=== PATIENT | male | born 1960 | race American Indian/Alaskan Native ===

== ENCOUNTER 2016-11-02 05:31 | Inpatient (IN) | payer MEDICARE ==
[2016-11-02] MEDS ORDERED: MORPHINE ONE (05:54)
[2016-11-02] MEDS ORDERED: MORPHINE IV ONE (05:54)
[2016-11-02] MEDS ORDERED: NITRO-BID 2% TP ONE ×2 (05:54)
[2016-11-02 06:21] LABS: Basophils % (Auto) 0.7 % (0.0-1.8); Eosinophils % (Auto) 3.2 % (0.0-4.3); Hematocrit 32.7 % (35.5-45.6); Hemoglobin 10.7 gm/dl (11.8-15.2); Mean Corpuscular HGB Conc 33 % (32-34); Mean Corpuscular Hemoglobin 33 pg (28-32); Mean Corpuscular Volume 99 fl (84-94); Platelet Count 129 K/mm3 (140-440); Red Cell Distribution Width 15.3 % (13.2-15.2)
[2016-11-02 06:56] LABS: BUN/Creatinine Ratio 5.27; Calcium 9.6 mg/dL (8.4-10.2); Chloride 98.7 mmol/L (98-107); Potassium 4.8 mmol/L (3.6-5.0)
[2016-11-02] MEDS ORDERED: APRESOLINE IV ONE (08:54)
[2016-11-02] MEDS ORDERED: DILAUDID IV ONE (08:54)
[2016-11-02] MEDS ORDERED: PROTONIX IV ONE (08:54)
[2016-11-02] MEDS ORDERED: PEPCID IV ONE (08:54)
--- NOTE | 2016-11-02 08:56 | Emergency Department Report ---
ED General Adult HPI - General Chief complaint: Chest Pain Stated complaint: CHEST PAIN Time Seen by Provider: 11/02/16 08:47 Source: patient, EMS (ems notes not available at time of chart dictation), RN notes reviewed, old records reviewed Mode of arrival: Stretcher Limitations: No Limitations - History of Present Illness Initial comments: This is a 56-year-old male. He is previously unknown to me. His art psychotherapist is Dr. Santiago. His GI doctor Is Dr. Haro. His Director Video Is Dr. Samaniego at [facility]. Past medical history includes acute CO, bypass surgery, heart failure, hypertension, high cholesterol, renal failure, on dialysis Wednesday, Wednesday, Wednesday. Last dialyzed one week ago. Patient presents to the ER with abdominal pain, chest pain. Symptoms present since 11 PM. Chest pain is epigastric and radiates down the left upper extremity. Positive nausea. There is no leg pain. There is no leg swelling. No recent trips greater than 4 hours. No recent hospital admissions. Today, patient denies CO last month, denies stent placement last month. He reports that his pain is typically improves with Percocet -: Gradual Location: chest, abdomen Radiation: extremity Severity scale (0 -10): 4 Quality: aching Consistency: intermittent Improves with: movement, rest Worsens with: movement Associated Symptoms: chest pain, loss of appetite, shortness of breath, weakness - Related Data Home Medications Medication Instructions Recorded Confirmed Last Taken Carvedilol [Coreg] 25 mg PO BID 11/02/16 11/02/16 10/29/16 Previous Rx's Medication Instructions Recorded Last Taken Type Metoprolol [Lopressor TAB] 25 mg PO BID #60 tablet 08/19/16 10/29/16 Rx hydrALAZINE [Apresoline TAB] 25 mg PO Q8HR #90 tablet 08/19/16 10/29/16 Rx Allergies Allergy/AdvReac Type Severity Reaction Status Date / Time No Known Allergies Allergy Verified 03/23/14 08:19 ED Review of Systems ROS: Stated complaint: CHEST PAIN Other details as noted in HPI Constitutional: denies: fever Eyes: denies: vision change ENT: denies: epistaxis Respiratory: cough Cardiovascular: chest pain Gastrointestinal: abdominal pain Genitourinary: as per HPI Musculoskeletal: back pain Skin: denies: lesions Neurological: weakness Psychiatric: as per HPI ED Past Medical Hx - Past Medical History Hx Hypertension: Yes (1990) Hx Heart Attack/AMI: Yes Hx Congestive Heart Failure: Yes Hx Diabetes: No Hx Renal Disease: Yes (HD M,W,F) Hx Asthma: No Hx COPD: No Additional medical history: CO last Month with stent placenment - Surgical History Hx Coronary Stent: Yes (x1 2012) Additional Surgical History: Stent placement, LUE AV graft - Social History Smoking Status: Current Every Day Smoker - Medications Home Medications: Home Medications Medication Instructions Recorded Confirmed Last Taken Type Metoprolol [Lopressor TAB] 25 mg PO BID #60 tablet 08/19/16 11/02/16 10/29/16 Rx hydrALAZINE [Apresoline TAB] 25 mg PO Q8HR #90 tablet 08/19/16 11/02/16 Rx Carvedilol [Coreg] 25 mg PO BID 11/02/16 11/02/16 10/29/16 History ED Physical Exam - General Limitations: No Limitations General appearance: alert, in no apparent distress - Head Head exam: Present: atraumatic, normocephalic - Eye Eye exam: Present: normal appearance, EOMI. Absent: nystagmus - ENT ENT exam: Present: normal exam, normal orophraynx, mucous membranes moist, normal external ear exam - Neck Neck exam: Present: normal inspection, full ROM. Absent: tenderness, meningismus - Respiratory Respiratory exam: Present: rhonchi. Absent: respiratory distress - Cardiovascular Cardiovascular Exam: Present: regular rate, normal rhythm, normal heart sounds. Absent: bradycardia, tachycardia, irregular rhythm, systolic murmur, diastolic murmur, rubs, gallop - GI/Abdominal GI/Abdominal exam: Present: soft, tenderness, normal bowel sounds, other ( epigastric tenderness). Absent: distended, guarding, rebound, rigid, pulsatile mass - Rectal Rectal exam: Present: deferred - Extremities Exam Extremities exam: Present: normal inspection, full ROM, normal capillary refill , other (left upper extremity AV fistula, appropriate thrill). Absent: tenderness, pedal edema, joint swelling, calf tenderness - Back Exam Back exam: Present: normal inspection, full ROM. Absent: tenderness, CVA tenderness (R) - Neurological Exam Neurological exam: Present: alert, oriented X3, other (Extraocular movements intact. Tongue midline. No facial droop. Facial sensation intact to light touch in the V1, V2, V3 distribution bilaterally. 5 and 5 strength in 4 extremities.. Sensation is intact to light touch in 4 extremities.). Absent: motor sensory deficit - Psychiatric Psychiatric exam: Present: normal affect, normal mood - Skin Skin exam: Present: warm, dry, intact, normal color. Absent: rash ED Course Vital Signs 11/02/16 11/02/16 11/02/16 05:32 05:45 06:00 Temperature 97.6 F Pulse Rate 81 81 80 Respiratory 21 33 H 25 H Rate Blood Pressure 208/124 Blood Pressure 207/117 [Right] O2 Sat by Pulse 96 92 Oximetry 11/02/16 11/02/16 11/02/16 06:01 06:04 06:15 Temperature Pulse Rate 83 80 83 Respiratory 37 H 19 Rate Blood Pressure 218/134 225/131 Blood Pressure [Right] O2 Sat by Pulse 95 92 Oximetry 11/02/16 11/02/16 11/02/16 06:30 06:45 07:00 Temperature Pulse Rate 86 84 85 Respiratory 30 H 20 14 Rate Blood Pressure 223/133 227/136 228/135 Blood Pressure [Right] O2 Sat by Pulse 92 89 90 Oximetry 11/02/16 11/02/16 11/02/16 07:15 07:30 07:45 Temperature Pulse Rate 84 85 85 Respiratory 15 15 17 Rate Blood Pressure 216/134 220/149 228/136 Blood Pressure [Right] O2 Sat by Pulse 93 97 98 Oximetry 11/02/16 11/02/16 11/02/16 08:00 08:15 08:30 Temperature Pulse Rate 82 80 80 Respiratory 22 17 22 Rate Blood Pressure 223/133 216/134 217/124 Blood Pressure [Right] O2 Sat by Pulse 93 94 93 Oximetry 11/02/16 11/02/16 11/02/16 08:45 09:01 09:15 Temperature Pulse Rate 84 80 87 Respiratory 21 34 H 14 Rate Blood Pressure 217/124 194/110 202/127 Blood Pressure [Right] O2 Sat by Pulse 99 97 97 Oximetry 11/02/16 11/02/16 11/02/16 09:16 09:31 11:07 Temperature Pulse Rate 85 89 Respiratory 13 Rate Blood Pressure 202/127 202/127 203/134 Blood Pressure [Right] O2 Sat by Pulse 98 96 Oximetry 11/02/16 11/02/16 11/02/16 11:15 11:16 11:45 Temperature Pulse Rate 89 Respiratory 20 Rate Blood Pressure 203/134 206/140 Blood Pressure 203/134 [Right] O2 Sat by Pulse 95 99 97 Oximetry 11/02/16 11/02/16 11/02/16 12:01 12:15 12:31 Temperature Pulse Rate Respiratory Rate Blood Pressure 206/140 206/140 186/108 Blood Pressure [Right] O2 Sat by Pulse 97 74 L 97 Oximetry 11/02/16 11/02/16 11/02/16 12:45 13:01 13:15 Temperature Pulse Rate 87 82 Respiratory 13 17 Rate Blood Pressure 186/108 231/133 166/106 Blood Pressure [Right] O2 Sat by Pulse 97 99 Oximetry 11/02/16 11/02/16 11/02/16 13:30 13:45 14:00 Temperature Pulse Rate 85 93 H 91 H Respiratory 12 15 12 Rate Blood Pressure 193/109 198/131 194/128 Blood Pressure [Right] O2 Sat by Pulse 98 97 97 Oximetry 11/02/16 11/02/16 11/02/16 14:15 14:20 14:30 Temperature Pulse Rate 99 H 91 H 96 H Respiratory 13 14 Rate Blood Pressure 194/128 194/128 177/103 Blood Pressure [Right] O2 Sat by Pulse 99 Oximetry 11/02/16 11/02/16 11/02/16 14:45 15:00 15:11 Temperature Pulse Rate 92 H 99 H 98 H Respiratory 14 16 13 Rate Blood Pressure 178/104 180/93 180/93 Blood Pressure [Right] O2 Sat by Pulse 95 100 97 Oximetry 11/02/16 11/02/16 11/02/16 15:23 15:30 15:41 Temperature Pulse Rate 91 H 91 H Respiratory 14 12 Rate Blood Pressure 180/93 176/102 176/102 Blood Pressure [Right] O2 Sat by Pulse 98 97 96 Oximetry 11/02/16 11/02/16 11/02/16 15:51 16:00 16:11 Temperature Pulse Rate 99 H 88 87 Respiratory 14 11 L 11 L Rate Blood Pressure 166/97 168/96 168/96 Blood Pressure [Right] O2 Sat by Pulse 97 95 98 Oximetry 11/02/16 16:31 Temperature 98.0 F Pulse Rate Respiratory Rate Blood Pressure Blood Pressure [Right] O2 Sat by Pulse Oximetry - Reevaluation(s) Reevaluation #1: 11/02/16 10:34 Differential diagnosis: GERD, pneumonia, congestive heart failure/fluid overload , acute coronary syndrome, hypertensive urgency/emergency, end stage renal disease on dialysis, uremia, noncompliance with dialysis therapy Assessment and plan: 56-year-old male with market hypertension, uremia, noncompliance with dialysis therapy, chest pain, chronic troponin leak. Required hydralazine, and multiple pain medications. Noncontrast CT scan of the abdomen and pelvis negative for acute disease. Patient currently tolerating liquid feeds. Elevated troponin leak is appreciated, this is most likely chronic, and essentially unchanged. Case is discussed with Hospital physician, Dr. Pearce, who is going to admit the patient. Case is discussed with nephrology, Dr. Richter, who is going to arrange urgent/ emergent dialysis. Case is discussed with cardiology, Dr. Sanchez and Deedee Mukherjee, who will make specific recommendations. ED Medical Decision Making - Lab Data Result diagrams: 11/03/16 06:07 11/03/16 06:07 Vital Signs 11/02/16 11/02/16 11/02/16 05:32 05:45 06:00 Temperature 97.6 F Pulse Rate 81 81 80 Respiratory 21 33 H 25 H Rate Blood Pressure 208/124 Blood Pressure 207/117 [Right] O2 Sat by Pulse 96 92 Oximetry 11/02/16 11/02/16 11/02/16 06:01 06:04 06:15 Temperature Pulse Rate 83 80 83 Respiratory 37 H 19 Rate Blood Pressure 218/134 225/131 Blood Pressure [Right] O2 Sat by Pulse 95 92 Oximetry 11/02/16 11/02/16 06:30 09:16 Temperature Pulse Rate 86 85 Respiratory 30 H Rate Blood Pressure 223/133 202/127 Blood Pressure [Right] O2 Sat by Pulse 92 Oximetry Lab Results 11/02/16 11/02/16 11/02/16 Range/Units 06:08 06:08 09:28 WBC 5.0 (4.5-11.0) K/mm3 RBC 3.30 L (3.65-5.03) M/mm3 Hgb 10.7 L (11.8-15.2) gm/dl Hct 32.7 L (35.5-45.6) % MCV 99 H (84-94) fl MCH 33 H (28-32) pg MCHC 33 (32-34) % RDW 15.3 H (13.2-15.2) % Plt Count 129 L (140-440) K/mm3 Lymph % (Auto) 17.6 (13.4-35.0) % [place] % (Auto) 11.2 H (0.0-7.3) % Eos % (Auto) 3.2 (0.0-4.3) % Baso % (Auto) 0.7 (0.0-1.8) % Lymph # 0.9 L (1.2-5.4) K/mm3 [place] # 0.6 (0.0-0.8) K/mm3 Eos # 0.2 (0.0-0.4) K/mm3 Baso # 0.0 (0.0-0.1) K/mm3 Seg Neutrophils % 67.3 (40.0-70.0) % Seg Neutrophils # 3.4 (1.8-7.7) K/mm3 PT (12.2-14.9) Sec. INR (0.87-1.13) Sodium 142 (137-145) mmol/L Potassium 4.8 (3.6-5.0) mmol/L Chloride 98.7 (98-107) mmol/L Carbon Dioxide 19 L (22-30) mmol/L Anion Gap 29 mmol/L BUN 77 H (9-20) mg/dL Creatinine 14.6 H (0.8-1.5) mg/dL Estimated GFR 4 ml/min BUN/Creatinine Ratio 5.27 % Glucose 76 (75-100) mg/dL Calcium 9.6 (8.4-10.2) mg/dL Total Bilirubin (0.1-1.2) mg/dL Direct Bilirubin (0-0.2) mg/dL AST (5-40) units/L ALT (7-56) units/L Alkaline Phosphatase (35-129) units/L Troponin T 0.102 H* 0.102 H* (0.00-0.029) ng/mL Total Protein (6.3-8.2) g/dL Triglycerides 101 (2-149) mg/dL Cholesterol 134 (50-199) mg/dL LDL Cholesterol Direct 67 (50-130) mg/dL HDL Cholesterol 47 (40-59) mg/dL Cholesterol/HDL Ratio 2.85 % Lipase (13-60) units/L 11/02/16 11/02/16 Range/Units 09:28 09:28 WBC (4.5-11.0) K/mm3 RBC (3.65-5.03) M/mm3 Hgb (11.8-15.2) gm/dl Hct (35.5-45.6) % MCV (84-94) fl MCH (28-32) pg MCHC (32-34) % RDW (13.2-15.2) % Plt Count (140-440) K/mm3 Lymph % (Auto) (13.4-35.0) % [place] % (Auto) (0.0-7.3) % Eos % (Auto) (0.0-4.3) % Baso % (Auto) (0.0-1.8) % Lymph # (1.2-5.4) K/mm3 [place] # (0.0-0.8) K/mm3 Eos # (0.0-0.4) K/mm3 Baso # (0.0-0.1) K/mm3 Seg Neutrophils % (40.0-70.0) % Seg Neutrophils # (1.8-7.7) K/mm3 PT 14.8 (12.2-14.9) Sec. INR 1.17 H (0.87-1.13) Sodium (137-145) mmol/L Potassium (3.6-5.0) mmol/L Chloride (98-107) mmol/L Carbon Dioxide (22-30) mmol/L Anion Gap mmol/L BUN (9-20) mg/dL Creatinine (0.8-1.5) mg/dL Estimated GFR ml/min BUN/Creatinine Ratio % Glucose (75-100) mg/dL Calcium (8.4-10.2) mg/dL Total Bilirubin 0.5 (0.1-1.2) mg/dL Direct Bilirubin < 0.2 (0-0.2) mg/dL AST 15 (5-40) units/L ALT 20 (7-56) units/L Alkaline Phosphatase 76 (35-129) units/L Troponin T (0.00-0.029) ng/mL Total Protein 7.0 (6.3-8.2) g/dL Triglycerides (2-149) mg/dL Cholesterol (50-199) mg/dL LDL Cholesterol Direct (50-130) mg/dL HDL Cholesterol (40-59) mg/dL Cholesterol/HDL Ratio % Lipase 74 H (13-60) units/L - EKG Data -: EKG Interpreted by Me EKG shows normal: sinus rhythm Rate: normal - EKG Data When compared to previous EKG there are: no significant change Interpretation: unchanged when compared t 11/02/16 10:37 normal sinus, 80 bpm, normal axis, left ventricular hypertrophy, T-wave inversions 1, aVL, V5 and V6. This is essentially unchanged from prior EKG. Comparison is made to EKG from 08/17/2016. - Radiology Data Radiology results: report reviewed, image reviewed X-ray of the chest demonstrates congestive heart failure, cardiomegaly, fluid overload Noncontrast CT scan of the abdomen and pelvis with no acute surgical disease. There is mild congestive heart failure Critical care attestation.: If time is entered above; I have spent that time in minutes in the direct care of this critically ill patient, excluding procedure time. ED Disposition Clinical Impression: Uremia, Hypertensive emergency, Elevated troponin I level, Chest pain Disposition: OP ADMITTED IP TO THIS HOSP Is pt being admited?: Yes Does the pt Need Aspirin: Yes Condition: Stable
--- NOTE | 2016-11-02 09:24 | Admit Criteria Form ---
Admission Criteria Documentation: CARDIOLOGY GRG Clinical Indications for Admission to Inpatient Care ( Place 'X' for any and all applicable criteria): Hospital admission is needed for appropriate care of the patient because of ANY ONE of the following (1): [ ] I. Hemodynamic instability as indicated by ALL of the following (1)(2)(3) (4)(5) [ ]a) Vital signs or other findings not as expected for chronic patient condition or baseline [ ]b) Instability indicated by ANY ONE of the following: [ ]i) Hypotension [ ]ii) Symptomatic Tachycardia unresponsive to treatment ( e.g., analgesia, fluids, sedation as indicated) [ ]iii) Inadequate perfusion indicated by ANY ONE of the following: [ ] 1) Lactic acidosis (> 2 mmol/L) [ ] 2) New abnormal capillary refill (> 3 seconds) [ ] 3) Reduced urine output [ ] 4) New altered mental status [ ]iv) Orthostatic vital sign changes unresponsive to treatment (e.g., fluids) [ ]v) IV inotropic or vasopressor medication required to maintain adequate blood pressure or perfusion [ ] II. Severe heart failure as indicated by ANY ONE of the following(17)(18) [ ]a) Respiratory distress [ ]b) Hypotension [ ]c) Anasarca (refractory to outpatient therapy) [ ]d) Cardiac arrhythmias of immediate concern [ ]e) Myocardial ischemia [ ] III. Cardiac arrhythmias or findings of immediate concern indicated by ANY ONE of the following (19)(20): [ ] a) Heart rhythms that are inherently dangerous or unstable indicated by ANY ONE of the following (21)(22)(23): [ ] i) Resuscitated ventricular fibrillation or cardiac arrest [ ] ii) Ventricular escape rhythm [ ] iii) Sustained ventricular tachycardia (30 seconds or more of ventricular rhythm at greater than 100 beats per minute) [ ] iv) Nonsustained ventricular tachycardia and ANY ONE of the following: [ ] 1) Suspected cardiac ischemia as cause or consequence of ventricular tachycardia [ ] 2) In setting of acute myocarditis [ ] b) Unstable cardiac conduction defects indicated by ANY ONE of the following(23)(24)(25) [ ] i) Type II second-degree atrioventricular block [ ]ii) Third-degree atrioventricular block [ ]iii) New-onset left bundle branch block with suspected myocardial ischemia [ ]c) Any heart rhythm and ANY ONE of the following (21)(22)(26)(27) (28) [ ] i) Continuous long-term ECG monitoring needed (e.g., initiation of drug requiring monitoring for more than 24 hours) [ ] ii) Patient has automatic implanted cardioverter defibrillator that is repeatedly firing, malfunctioning, or in need of immediate adjustment of settings beyond the scope of ambulatory or observation care [ ]d) Heart rhythms of concern due to ANY ONE of the following: [ ] i) Hypotension [ ] ii) Respiratory distress [ ] iii) Association with other significant symptoms (e.g., bradycardia with syncope or ongoing dizziness, supraventricular tachycardia with chest pain (14)(15)(17) [ ] IV. Monitoring for cardiac contusion beyond the scope of observation care needed [A](30)(31)(32) [ ] V. Surgical or device complication (e.g., valve replacement complication , pacemaker dysfunction) (35)(41)(44)(45)(46) [ ] . Inpatient palliative care needed. [B](49) Also use Inpatient Palliative Care Criteria [ ] VII. Nonbacterial thrombotic (marantic) endocarditis (36)(43)(47)(48) [X ] VIII. Cardiology condition, symptom, or finding for which emergency and observation care has failed or are not considered appropriate. [ ] IX. Acute valvular disease requiring inpatient as indicated by ANY ONE of the following (41) [ ]a) Acute valvular regurgitation (42) [ ]b) Noninfectious valvulitis (43) [ ]c) Obstructive valve thrombosis [ ]d) Paravalvular leak [ ]e) Other significant valvular disorder remaining after emergency or observation level of care (as appropriate) [ ]X. Pericardial disease requiring inpatient treatment as indicated by ANY ONE of the following (33)(34)(35)(36)(37) [ ]a) Suspected tamponade (38)(39)(40) [ ]b) Hemopericardium [ ]c) Other significant pericardial disorder remaining after emergency or observation level of care (as appropriate) [ ] XI. Cardiac ischemia beyond scope of emergency and observation care. [ ] XII. Hypertension requiring inpatient treatment as indicated by ANY ONE of the following (6)(7)(8) [ ]a) SBP greater than 220 mm Hg or DBP greater than 120 mmHg despite treatment [ ]b) SBP greater than 140 mm Hg or DBP greater than 100 mm Hg with evidence of acute end organ damage as indicated by ANY ONE of the following [ ] i) Altered mental status [ ] ii) Acute renal failure as indicated by new onset of ANY ONE of the following (9)(10)(11)(12)(13) [ ]1) 3-fold rise in serum creatinine from baseline [ ]2) Serum creatinine greater than 4 mg/dL ( 354 micromoles/L) with acute rise greater than 0.5 mg/dL (44.2 micromoles/L) [ ]3) Reduction of more than 75% in estimated glomerular filtration rate from baseline [ ]4) Estimated glomerular filtration rate less than 35 mL/min/1.73m2 (0.59 mL/sec/1.73m2) in child up to 18 years of age [ ]5) Cessation of urine output indicated by ALL of the following [ ]A. Adequate volume status [ ]B. Inadequate urine output as indicated by ANY ONE of the following [ ]a. Urine output less than 0.3 mL/kg/hr for 24 hours [ ]b. Anuria (urine output less than 0.1 mL/kg/hr) for 12 hours [ ] iii) Aortic dissection [ ] iv) Myocardial Ischemia [ ] v) Left ventricular heart failure [ ]vi) Retinal Hemorrhage [ ]vii) Other significant finding [ ]c) Hypertension in child requiring inpatient treatment as indicated by ALL of the following(14)(15)(16) [ ] i) Outpatient treatment not effective, not available, or not appropriate [ ]ii) SBP or DBP greater than 95th percentile for age [ ]iii) Evidence of acute end organ damage as indicated by ANY ONE of the following [ ]1) Altered mental status [ ]2) Acute renal failure as indicated by new onset of ANY ONE of the following(9)(10)(11)(12)(13) [ ]A. 3-fold rise in serum creatinine from baseline [ ]B. Serum creatinine greater than 4 mg/dL (354 micromoles/L) with acute rise greater than 0.5 mg/dL (44.2 micromoles/L) [ ]C. Reduction of more than 75% in estimated glomerular filtration rate from baseline [ ]D. Estimated glomerular filtration rate less than 35 mL/min/1.73m2 (0.59 mL/sec/1.73m2) in child up to 18 years of age [ ]E. Cessation of urine output indicated by ALL of the following [ ]a. Adequate volume status [ ]b. Inadequate urine output as indicated by ANY ONE of the following [ ]i) Urine output less than 0.3 mL/kg/hr for 24 hours [ ]ii) Anuria ( urine output less than 0.1 mL/kg/hr) for 12 hours [ ]3) Severe headache [ ]4) Visual disturbance [ ]5) Retinal hemorrhage [ ]6) Other significant finding [ ]XIII. Complications of transplanted heart indicated by ANY ONE of the following(61): [ ]a) Acute graft rejection requiring inpatient management (eg, intravenous immunosuppression)(62)(63) [ ]b) Acute graft heart failure indicated by ANY ONE of the following(64): [ ]i) Hemodynamic instability [ ]ii) Cardiac arrhythmias of immediate concern [ ]iii) Pulmonary edema that is very severe (eg, mechanical ventilation needed, imminent or likely, need for 100% oxygen to keep oxygen saturation above 90%) [ ]iv) Pulmonary edema that is persistent as indicated by ALL of the following: [ ]1) New need for oxygen therapy to keep oxygen saturation above 90% (or increased FiO2 need from baseline) [ ]2) Has not improved sufficiently with emergency department or observation care IV diuretics or other heart failure treatments[E] [ ]v) Altered mental status that is severe or persistent [ ]vi) Increased creatinine (new on laboratory test) with reduction of more than 50% in estimated glomerular filtration rate from baseline [ ]vii) Progressively (ongoing) rising creatinine (known from past laboratory test) with reduction of more than 25% in estimated glomerular filtration rate from baseline [ ]viii) Acute renal failure [ ]ix) Acute peripheral ischemia (eg, examination shows pulseless, cool, mottled, or cyanotic extremity) [ ]x) Pulmonary artery catheter monitoring needed [ ]xi) Other sign or symptom of heart failure requiring inpatient treatment (ie, too severe or not responsive to outpatient and observation care treatment) [ ]c) Infection requiring inpatient management (eg, Hemodynamic instability, need for intravenous antimicrobial treatment)(66)(67)(68)(69)(70) [ ]d) Cardiac allograft vasculopathy requiring inpatient management ( eg evidence of cardiac ischemia)(71) [ ]e) Other complication of transplanted heart (eg, stroke, severe pulmonary hypertension, severe valvular dysfunction) requiring inpatient management(72) The original [facility] [employer] content created by [employer] [facility] has been revised. The portions of the content which have been revised are identified through the use of italic text or in bold, and [facility] has neither reviewed nor approved the modified material. All other unmodified content is copyright [facility] [employer]. Please see references footnoted in the original [facility] [employer] edition 2016 Admission Criteria Met: Yes
--- NOTE | 2016-11-02 09:49 | XRay Report ---
PORTABLE CHEST INDICATION: Chest pain, shortness of breath. COMPARISON: 08/16/2016 FINDINGS: Portable, frontal chest radiograph demonstrates stable cardiomediastinal silhouette/mild cardiomegaly and slight increased lung markings, likely congestive with minimal fluid or thickening along the right minor fissure also now noted. Trace pleural effusions also now not excluded. No large pleural effusions or overt cephalization however. Stable post CABG changes and few bony degenerative changes. EKG leads. CONCLUSION: Slight/early congestive changes suspected with cardiomegaly and post CABG changes again noted, as described. Please correlate. Thank you for the opportunity to participate in this patient's care.
[2016-11-02 09:56] LABS: INR 1.17 (0.87-1.13)
[2016-11-02 10:00] LABS: Alanine Aminotransferase 20 units/L (7-56); Alkaline Phosphatase 76 units/L (35-129); Bilirubin,Total 0.5 mg/dL (0.1-1.2); Lipase 74 units/L (13-60)
[2016-11-02 10:05] LABS: Bilirubin,Direct < 0.2 mg/dL (0-0.2)
--- NOTE | 2016-11-02 10:16 | Cat Scan Report ---
CT OF THE ABDOMEN AND PELVIS WITHOUT CONTRAST HISTORY: Abdominal pain. TECHNIQUE: Helical CT without contrast. Sagittal and coronal reformatted images. FINDINGS: Within the limits of a noncontrast exam, the abdominal and pelvic viscera are within normal limits. The liver, biliary system, pancreas, spleen, kidneys, adrenal glands and bladder are unremarkable. The bowel loops are normal caliber and wall thickness. Normal appendix. The aorta is normal caliber. No ascites, bulky adenopathy or inflammatory changes. Mild cardiomegaly and trace right pleural effusion are identified. The visualized lung bases are well aerated. There is moderate thoracolumbar spondylosis. No fracture or suspicious bony lesion. Small umbilical hernia containing fat is identified. IMPRESSION: No acute abdominal process is appreciated. Mild CHF. Small umbilical hernia containing fat.
[2016-11-02] MEDS ORDERED: BABY ASPIRIN PO ONE (10:38)
[2016-11-02 10:49] LABS: Albumin 3.7 g/dL (3.9-5); Albumin/Globulin Ratio 1.1 %
[2016-11-02] MEDS ORDERED: DILAUDID IV PRN (11:18)
[2016-11-02] MEDS ORDERED: MILK OF MAGNESIA PO PRN (11:18)
[2016-11-02] MEDS ORDERED: DULCOLAX PR PRN (11:18)
[2016-11-02] MEDS ORDERED: PERCOCET 5/325 PO PRN (11:18)
[2016-11-02] MEDS ORDERED: ALUM-MAG HYDROX-SIMETH 200-200-20MG/5ML PO PRN (11:18)
--- NOTE | 2016-11-02 11:24 | Consultation ---
History of Present Illness Consult date: 11/02/16 Requesting physician: ANNE MARIE MONTOYA Consult reason: chest pain, elevated troponin History of present illness: The patient is a 56 year old male with a history of CAD s/p CABG, ESRD on HD who presented with complaints of epigastric pain, substernal chest tightness and shortness of breath that started yesterday. He admits that he has not been to dialysis since last Wednesday. He states he feels like "giving up." Troponin level is mildly elevated. BP on presentation was 203/134. Past History Past Medical History: acute [place], CAD, dialysis, ESRD, heart failure, hypertension , hyperlipidemia Past Surgical History: CABG, PTCA, Other (dialysis access placement) Social history: smoking. denies: alcohol abuse, prescription drug abuse, IV drug use, full code Family history: no significant family history Medications and Allergies Allergies Allergy/AdvReac Type Severity Reaction Status Date / Time No Known Allergies Allergy Verified 03/23/14 08:19 Home Medications Medication Instructions Recorded Confirmed Last Taken Type Metoprolol [Lopressor TAB] 25 mg PO BID #60 tablet 08/19/16 11/02/16 10/29/16 Rx hydrALAZINE [Apresoline TAB] 25 mg PO Q8HR #90 tablet 08/19/16 11/02/16 Rx Carvedilol [Coreg] 25 mg PO BID 11/02/16 11/02/16 10/29/16 History Review of Systems Constitutional: no fever, no chills Ears, nose, mouth and throat: no nasal congestion, no nasal discharge, no sinus pressure Cardiovascular: chest pain, shortness of breath, dyspnea on exertion, leg edema , no palpitations Respiratory: shortness of breath, dyspnea on exertion, no cough, no congestion, no wheezing Gastrointestinal: abdominal pain, nausea, no diarrhea, no constipation Genitourinary Male: no dysuria, no hematuria Musculoskeletal: no neck stiffness, no neck pain, no myalgias Integumentary: no rash, no pruritis Neurological: no parathesias, no numbness, no tingling, no headaches Endocrine: no cold intolerance, no heat intolerance Hematologic/Lymphatic: no easy bruising, no easy bleeding Allergic/Immunologic: no urticaria, no wheezing Physical Examination Last Vital Signs Temp 97.6 F 11/02/16 06:00 Pulse 89 11/02/16 11:16 Resp 20 11/02/16 11:16 BP 203/134 11/02/16 11:16 Pulse Ox 99 11/02/16 11:16 General appearance: no acute distress HEENT: Positive: Normocephaly, Mucus Membranes Moist Neck: Positive: neck supple, trachea midline Cardiac: Positive: Reg Rate and Rhythm, S1/S2 Lungs: Positive: clear to auscultation Neuro: Positive: Grossly Intact Abdomen: Positive: Soft, Active Bowel Sounds. Negative: Tender Skin: Negative: Rash Extremities: Present: +2 Edema (bilateral lower legs) Results 11/02/16 06:08 11/02/16 06:08 Cardiac Enzymes 11/02/16 Range/Units 09:28 AST 15 (5-40) units/L Coagulation 11/02/16 Range/Units 09:28 PT 14.8 (12.2-14.9) Sec. INR 1.17 H (0.87-1.13) Lipids 11/02/16 Range/Units 06:08 Triglycerides 101 (2-149) mg/dL Cholesterol 134 (50-199) mg/dL HDL Cholesterol 47 (40-59) mg/dL Cholesterol/HDL Ratio 2.85 % CBC 11/02/16 Range/Units 06:08 WBC 5.0 (4.5-11.0) K/mm3 RBC 3.30 L (3.65-5.03) M/mm3 Hgb 10.7 L (11.8-15.2) gm/dl Hct 32.7 L (35.5-45.6) % Plt Count 129 L (140-440) K/mm3 Lymph # 0.9 L (1.2-5.4) K/mm3 [place] # 0.6 (0.0-0.8) K/mm3 Eos # 0.2 (0.0-0.4) K/mm3 Baso # 0.0 (0.0-0.1) K/mm3 Comprehensive Metabolic Panel 11/02/16 11/02/16 Range/Units 06:08 09:28 Sodium 142 (137-145) mmol/L Potassium 4.8 (3.6-5.0) mmol/L Chloride 98.7 (98-107) mmol/L Carbon Dioxide 19 L (22-30) mmol/L BUN 77 H (9-20) mg/dL Creatinine 14.6 H (0.8-1.5) mg/dL Glucose 76 (75-100) mg/dL Calcium 9.6 (8.4-10.2) mg/dL Direct Bilirubin < 0.2 (0-0.2) mg/dL AST 15 (5-40) units/L ALT 20 (7-56) units/L Alkaline Phosphatase 76 (35-129) units/L Total Protein 7.0 (6.3-8.2) g/dL Albumin 3.7 L (3.9-5) g/dL - Imaging and Cardiology Echo: report reviewed EKG: image reviewed EKG interpretations - Telemetry EKG Rhythm: Sinus Rhythm - EKG Sinus rhythms and dysrhythmias: sinus rhythm Chamber hypertrophy or enlargement: left ventricular hypertro Repolarization changes or abnormalities: repolarization abn secondary to ventricular hypertrophy Assessment and Plan Atypical chest pain no acute EKG changes stress MPI 07/2016: no significant ischemia LHC 02/2016: patent bypass grafts with distal disease in [place] rca and circumflex territory-->medical mgt. Echo 07/2016: EF 40-45%, RVSP 60-65mmHg resume imdur 30mg daily Epigastric pain consider GI evaluation Elevated troponin-->likely due to ESRD mildly elevated but flat Accelerated hypertension dialysis per nephrology resume coreg, lisinopril, imdur CAD /p CABG and PCI resume ASA, Plavix, Lipitor ESRD on HD Anemia Depression Tobacco abuse Given only mildly elevated troponin in the setting of ESRD and recent negative stress test, recommend continuing medical management. Consider GI evaluation. The patient has been seen in conjunction with Dr. Julien who agrees with the assessment and plan of care. Thank you Dr. Montoya for allowing us to participate in the care of this patient.
--- NOTE | 2016-11-02 11:32 | History and Physical Report ---
History of Present Illness Date of examination: 11/02/16 Date of admission: 11/02/2016 Chief complaint: Chest pain shortness of breath. History of present illness: Patient 56-year-old male with a history of myocardial infarction and coronary disease CABG approximately 2 years ago, hyperlipidemia, anemia, end-stage renal disease. Patient presents after missing hemodialysis for 1 week. Patient stated shortly after beginning to have shortness of breath and chest pain. Patient describes pain more as indigestion in the epigastric area that radiates to the left side. Very poor historian difficult patient to explain pain. Patient did actually have a negative stress tests but with severe left ventricular systolic dysfunction only for months ago. Was scheduled to see Dr. Haro for epigastric pain. The description of pain to ER physician and myself seemed to be different. Patient presented without hemodialysis having chest pain nausea vomiting. She required 33 minutes of critical time secondary to high probability of clinically significant and sudden life-threatening deterioration. Patient had and cardiac symptoms that require muffle attention and intervention and personal management. Past History Past Medical History: acute [place], arrhythmia, CAD, heart failure, hypertension. denies: atrial fib, anemia, arthritis, cancer, COPD, diabetes, dialysis, DVT, ESRD, GERD, hepatitis, HIV/AIDS, hyperthyroidism, hyperlipidemia, hypothyroidism , liver disease, migraines, pulmonary embolism, renal failure, stroke, sarcoidosis Past Surgical History: Other (access placement.) Social history: no significant social history Family history: CAD Medications and Allergies Allergies Allergy/AdvReac Type Severity Reaction Status Date / Time No Known Allergies Allergy Verified 03/23/14 08:19 Home Medications Medication Instructions Recorded Confirmed Last Taken Type Metoprolol [Lopressor TAB] 25 mg PO BID #60 tablet 08/19/16 11/02/16 10/29/16 Rx hydrALAZINE [Apresoline TAB] 25 mg PO Q8HR #90 tablet 08/19/16 11/02/16 Rx Carvedilol [Coreg] 25 mg PO BID 11/02/16 11/02/16 10/29/16 History Review of Systems Constitutional: no weight loss, no weight gain, no anorexia, no fatigue, no weakness, no lethargy, no poor appetite, no daytime sleepiness, no chronic pain Ears, nose, mouth and throat: no decreased hearing, no nose pain, no bleeding gums, no mouth pain, no dysphagia, no sore throat, no swelling in throat, no voice changes, no post-nasal drip, no vertigo Cardiovascular: chest pain, orthopnea, palpitations, rapid/irregular heart beat , edema, lightheadedness, shortness of breath, decreased exercise tolerance, no syncope, no dyspnea on exertion, no high blood pressure, no leg edema Respiratory: cough, no cough with sputum, no excessive sputum, no hemoptysis, no shortness of breath, no dyspnea on exertion, no pleurisy, no pain, no home oxygen Gastrointestinal: no abdominal pain, no nausea, no vomiting, no diarrhea, no change in bowel habits, no hematemesis, no BRBPR, no melena, no heartburn, no jaundice, no dyspepsia/bloating, no lactose intolerance Genitourinary Male: no hematuria, no flank pain, no discharge, no nocturia, no incontinence, no decreased libido, no testicular lump, no difficulties fathering child, no polyuria Rectal: no incontinence, no bleeding, no flatulence Musculoskeletal: shooting arm pain, arm numbness/tingling, low back pain, no neck pain, no shooting leg pain, no hot joints, no morning stiffness, no muscle weakness, no muscle cramps, no myalgias, no fractures, no arthritis Integumentary: no deferred, no pruritis, no redness, no wounds, no jaundice, no boils, no darkening of skin, no depigmentation, no dryness, no brittle nails, no hirsutism Neurological: no head injury, no paralysis, no vertigo, no headaches, no migraines, no tic, no sensory deficit Psychiatric: anxiety, depression, anxiety attacks, difficulties concentrating, mood swings, no memory loss, no change in sleep habits, no sleep disturbances, no insomnia, no hypersomnia, no change in appetite, no change in libido, no suicidal ideation, no disorientation, no hallucinations, no confusion, no irritability, no sadness/tearfullness Endocrine: no cold intolerance, no polyphagia, no flushing, no weight change, no thyroid mass, no low blood sugars, no fatigue Hematologic/Lymphatic: no easy bruising, no easy bleeding, no lymphedema Allergic/Immunologic: no urticaria, no persistent infections, no anaphylaxis, no seasonal allergies Exam - Constitutional Vitals: Temp Pulse Resp BP Pulse Ox 97.6 F 89 20 203/134 99 11/02/16 06:00 11/02/16 11:16 11/02/16 11:16 11/02/16 11:16 11/02/16 11:16 General appearance: Present: no acute distress, well-nourished - EENT Eyes: Present: PERRL ENT: hearing intact, clear oral mucosa - Neck Neck: Present: supple, normal ROM - Respiratory Respiratory effort: normal Respiratory: bilateral: CTA - Cardiovascular Heart Sounds: Present: S1 & S2. Absent: rub, click - Extremities Extremities: pulses symmetrical, No edema Peripheral Pulses: within normal limits - Abdominal General gastrointestinal: Present: soft, non-tender, non-distended, normal bowel sounds Male genitourinary: Present: normal - Integumentary Integumentary: Present: clear, warm, dry - Musculoskeletal Musculoskeletal: gait normal, strength equal bilaterally - Psychiatric Psychiatric: appropriate mood/affect, intact judgment & insight - Neurologic Neurologic: CNII-XII intact, moves all extremities Results - Labs CBC & Chem 7: 11/02/16 06:08 11/02/16 06:08 Labs: Laboratory Last Values WBC 5.0 K/mm3 (4.5-11.0) 11/02/16 06:08 RBC 3.30 M/mm3 (3.65-5.03) L 11/02/16 06:08 Hgb 10.7 gm/dl (11.8-15.2) L 11/02/16 06:08 Hct 32.7 % (35.5-45.6) L 11/02/16 06:08 MCV 99 fl (84-94) H 11/02/16 06:08 MCH 33 pg (28-32) H 11/02/16 06:08 MCHC 33 % (32-34) 11/02/16 06:08 RDW 15.3 % (13.2-15.2) H 11/02/16 06:08 Plt Count 129 K/mm3 (140-440) L 11/02/16 06:08 Lymph % (Auto) 17.6 % (13.4-35.0) 11/02/16 06:08 [place] % (Auto) 11.2 % (0.0-7.3) H 11/02/16 06:08 Eos % (Auto) 3.2 % (0.0-4.3) 11/02/16 06:08 Baso % (Auto) 0.7 % (0.0-1.8) 11/02/16 06:08 Lymph # 0.9 K/mm3 (1.2-5.4) L 11/02/16 06:08 [place] # 0.6 K/mm3 (0.0-0.8) 11/02/16 06:08 Eos # 0.2 K/mm3 (0.0-0.4) 11/02/16 06:08 Baso # 0.0 K/mm3 (0.0-0.1) 11/02/16 06:08 Seg Neutrophils % 67.3 % (40.0-70.0) 11/02/16 06:08 Seg Neutrophils # 3.4 K/mm3 (1.8-7.7) 11/02/16 06:08 PT 14.8 Sec. (12.2-14.9) 11/02/16 09:28 INR 1.17 (0.87-1.13) H 11/02/16 09:28 Sodium 142 mmol/L (137-145) 11/02/16 06:08 Potassium 4.8 mmol/L (3.6-5.0) 11/02/16 06:08 Chloride 98.7 mmol/L (98-107) 11/02/16 06:08 Carbon Dioxide 19 mmol/L (22-30) L 11/02/16 06:08 Anion Gap 29 mmol/L 11/02/16 06:08 BUN 77 mg/dL (9-20) H 11/02/16 06:08 Creatinine 14.6 mg/dL (0.8-1.5) H 11/02/16 06:08 Estimated GFR 4 ml/min 11/02/16 06:08 BUN/Creatinine Ratio 5.27 % 11/02/16 06:08 Glucose 76 mg/dL (75-100) 11/02/16 06:08 Calcium 9.6 mg/dL (8.4-10.2) 11/02/16 06:08 Total Bilirubin 0.5 mg/dL (0.1-1.2) 11/02/16 09:28 Direct Bilirubin < 0.2 mg/dL (0-0.2) 11/02/16 09:28 AST 15 units/L (5-40) 11/02/16 09:28 ALT 20 units/L (7-56) 11/02/16 09:28 Alkaline Phosphatase 76 units/L (35-129) 11/02/16 09:28 Troponin T 0.102 ng/mL (0.00-0.029) H* 11/02/16 09:28 NT-Pro-B Natriuret Pep 16798 pg/mL (0-900) H 11/02/16 09:28 Total Protein 7.0 g/dL (6.3-8.2) 11/02/16 09:28 Albumin 3.7 g/dL (3.9-5) L 11/02/16 09:28 Albumin/Globulin Ratio 1.1 % 11/02/16 09:28 Triglycerides 101 mg/dL (2-149) 11/02/16 06:08 Cholesterol 134 mg/dL (50-199) 11/02/16 06:08 LDL Cholesterol Direct 67 mg/dL (50-130) 11/02/16 06:08 HDL Cholesterol 47 mg/dL (40-59) 11/02/16 06:08 Cholesterol/HDL Ratio 2.85 % 11/02/16 06:08 Lipase 74 units/L (13-60) H 11/02/16 09:28 - Imaging and Cardiology EKG: image reviewed Chest x-ray: image reviewed Assessment and Plan Advance Directives: Yes VTE prophylaxis?: Chemical Plan of care discussed with patient/family: Yes - Patient Problems (1) Chest pain Current Visit: Yes Status: Acute Qualifiers: Chest pain type: C Plan to address problem: Chest pain at this particular time unlikely cardiac in source. Appears to be more epigastric pain to me. May be secondary to peptic ulcer disease. Versus gastritis. Patient did have negative stress test. Patient sees Dr. Santiago will reconsult Dr. Santiago. (2) Elevated troponin I level Current Visit: Yes Status: Acute Plan to address problem: Secondary to renal failure. This is been chronically elevated. (3) Hypertensive emergency Current Visit: Yes Status: Acute Plan to address problem: At present we'll place patient on Cardene drip. Patient's blood pressure has gotten as high as 225/150. We'll transfer to ICU especially since symptomatic having nausea vomiting chest pain. So especially since already has an extensive cardiac history. (4) ESRD (end stage renal disease) on dialysis Current Visit: No Status: Chronic Plan to address problem: Asians missed hemodialysis has been somewhat noncompliant. Patient stated to me that he may want to give this up and is tired of fighting. Patient very anxious versus aggressive.
[2016-11-02] MEDS ORDERED: CARDENE DRIP 40 MG/200 ML 40 MG/200 ML BAG IV SCH (12:00)
--- NOTE | 2016-11-02 12:25 | Consultation ---
History of Present Illness - Reason for Consult Consult date: 11/02/16 end stage renal disease - History of Present Illness patient with h/o ESRD secondary to HTN nephrosclerosis on HD for the last 3 years, he received HD every MWF, last treatment was one week ago, patient did not give a clear reason why he did not go to his treatments. he came to the ED for worsening of SOB and chest pain, was found to have very high BP and was started on nicradin gtt. renal consult requested for ESRD and HD management Past History Past Medical History: acute [place], arrhythmia, CAD, heart failure, hypertension. denies: atrial fib, anemia, arthritis, cancer, COPD, diabetes, dialysis, DVT, ESRD, GERD, hepatitis, HIV/AIDS, hyperthyroidism, hyperlipidemia, hypothyroidism , liver disease, migraines, pulmonary embolism, renal failure, stroke, sarcoidosis Past Surgical History: Other (access placement.) Social history: no significant social history Family history: CAD Medications and Allergies Allergies Allergy/AdvReac Type Severity Reaction Status Date / Time No Known Allergies Allergy Verified 03/23/14 08:19 Home Medications Medication Instructions Recorded Confirmed Last Taken Type Metoprolol [Lopressor TAB] 25 mg PO BID #60 tablet 08/19/16 11/02/16 10/29/16 Rx hydrALAZINE [Apresoline TAB] 25 mg PO Q8HR #90 tablet 08/19/16 11/02/16 Rx Carvedilol [Coreg] 25 mg PO BID 11/02/16 11/02/16 10/29/16 History Active Meds: Active Medications Al Hydrox/Mg Hydrox/Simethicone (Alum-Mag Hydrox-Simeth 297-471-28kb/5ml) 30 ml PO Q4H PRN PRN Reason: Indigestion Albuterol/Ipratropium (Duoneb 0.5 Mg-3 Mg/3 Ml Soln) 1 ampul IH Q6HRT AMADNO Bisacodyl (Dulcolax) 10 mg [place] QDAY PRN PRN Reason: constipation unrelieved by MOM Carvedilol (Coreg) 25 mg PO BID AMANDO Enoxaparin Sodium (Lovenox) 30 mg SUB-Q QDAY AMANDO Hydralazine HCl (Apresoline) 25 mg PO Q8HR AMANDO Hydromorphone HCl (Dilaudid) 0.5 mg IV Q3HR PRN PRN Reason: Pain, Moderate (4-6) Nicardipine/Sodium Chloride (Cardene Drip 40 Mg/200 Ml) 40 mg in 200 mls @ 25 mls/hr IV TITR AMANDO; 5 MG/HR PRN Reason: Protocol Stop: 11/03/16 11:24 Magnesium Hydroxide (Milk Of Magnesia) 30 ml PO Q4H PRN PRN Reason: Constipation Oxycodone/Acetaminophen (Percocet 5/325) 1 tab PO Q6H PRN PRN Reason: Pain, Moderate (4-6) Review of Systems All systems: negative (SOB, chest pain, weakness) Exam - Vital Signs Vital signs: Vital Signs Pulse Resp 81 21 11/02/16 05:32 11/02/16 05:32 - General Appearance General appearance: well-developed, well-nourished, appears stated age EENT: ATNC, PERRL, mucous membranes moist Neck: Present: neck supple. Absent: JVD/HJR Respiratory: Clear to Ascultation Heart: regular, S1S2 Gastrointestinal: Present: normoactive bowel sounds. Absent: tenderness, distended Integumentary: no rash, warm and dry Neurologic: no focal deficit, no asterixis, alert and oriented x3 Musculoskeletal: Present: other (trace pitting edema in BLE, L AVF with +thrill and bruit) Psychiatric: mood/affect appropriate, cooperative Results - Lab Results 11/02/16 06:08 11/02/16 06:08 Most recent lab results Calcium 9.6 mg/dL (8.4-10.2) 11/02/16 06:08 Assessment and Plan (1) ESRD on HD L AVF with + thrill and bruit HD today for clearance and volume removal will assess dialysis needs daily, may need another treament tomorrow strict I&O daily weights renally dose meds renal diet (2) HTN emergency on nicardin gtt UF with HD as above (3) Anemia in CKD will hold epogen due to poorly controlled BP (4) chest pain elevated troponin noted, could eb secondary to HTN emergency cardiology on board Thank you for this consult. will follow with you daily.
[2016-11-02] MEDS ORDERED: BABY ASPIRIN ONE (12:56)
[2016-11-02] MEDS: APRESOLINE PO SCH (14:20)
--- NOTE | 2016-11-02 17:29 | Consultation ---
History of Present Illness Consult date: 11/02/16 Requesting physician: REGINALDO CA Reason for consult: other (Hypertensive Emergency) History of present illness: PULMONARY/CCM CONSULT NOTE (Full dictation # [id number]) Please see dictated notes for full details Past History Past Medical History: acute [place], CAD, dialysis, ESRD, heart failure, hypertension , hyperlipidemia Past Surgical History: CABG, PTCA, Other (dialysis access placement) Social history: smoking. denies: alcohol abuse, prescription drug abuse, IV drug use, full code Family history: no significant family history Medications and Allergies Allergies Allergy/AdvReac Type Severity Reaction Status Date / Time No Known Allergies Allergy Verified 03/23/14 08:19 Home Medications Medication Instructions Recorded Confirmed Last Taken Type Metoprolol [Lopressor TAB] 25 mg PO BID #60 tablet 08/19/16 11/02/16 10/29/16 Rx hydrALAZINE [Apresoline TAB] 25 mg PO Q8HR #90 tablet 08/19/16 11/02/16 Rx Carvedilol [Coreg] 25 mg PO BID 11/02/16 11/02/16 10/29/16 History Active Meds: Active Medications Al Hydrox/Mg Hydrox/Simethicone (Alum-Mag Hydrox-Simeth 181-700-20wm/5ml) 30 ml PO Q4H PRN PRN Reason: Indigestion Albuterol/Ipratropium (Duoneb 0.5 Mg-3 Mg/3 Ml Soln) 1 ampul IH Q6HRT [facility] Aspirin (Baby Aspirin) 81 mg PO QDAY AMANDO Atorvastatin Calcium (Lipitor) 40 mg PO QHS AMANDO Bisacodyl (Dulcolax) 10 mg [place] QDAY PRN PRN Reason: constipation unrelieved by MOM Carvedilol (Coreg) 25 mg PO BID AMANDO Clopidogrel Bisulfate (Plavix) 75 mg PO QDAY AMANDO Enoxaparin Sodium (Lovenox) 30 mg SUB-Q QDAY [facility] Hydralazine HCl (Apresoline) 25 mg PO Q8HR [facility] Last Admin: 11/02/16 14:20 Dose: 25 mg Hydromorphone HCl (Dilaudid) 0.5 mg IV Q3HR PRN PRN Reason: Pain, Moderate (4-6) Nicardipine/Sodium Chloride (Cardene Drip 40 Mg/200 Ml) 40 mg in 200 mls @ 25 mls/hr IV TITR AMANDO; 5 MG/HR PRN Reason: Protocol Stop: 11/03/16 11:24 Last Titration: 11/02/16 14:22 Dose: 7 mg/hr, 35 mls/hr Isosorbide Mononitrate (Imdur) 30 mg PO QDAY AMANDO Lisinopril (Zestril) 20 mg PO QDAY AMANDO Magnesium Hydroxide (Milk Of Magnesia) 30 ml PO Q4H PRN PRN Reason: Constipation Oxycodone/Acetaminophen (Percocet 5/325) 1 tab PO Q6H PRN PRN Reason: Pain, Moderate (4-6) Physical Examination Vital signs: Vital Signs Pulse Resp 81 21 11/02/16 05:32 11/02/16 05:32 Results - Laboratory Findings CBC and BMP: 11/02/16 06:08 11/02/16 06:08 PT/INR, D-dimer PT 14.8 Sec. (12.2-14.9) 11/02/16 09:28 INR 1.17 (0.87-1.13) H 11/02/16 09:28
[2016-11-02] MEDS ORDERED: PROVENTIL IH PRN (17:43)
[2016-11-02] MEDS ORDERED: HABITROL TD SCH (18:00)
--- NOTE | 2016-11-02 18:11 | Event Note ---
Date: 11/02/16 Patient told the nurse that he doesn't want to be in ICU he wanted the discharge from the Cardene drip and go home immediately. Patient state he is not happy in the ICU. Was to be transferred.
[2016-11-02] MEDS: DUONEB 0.5 MG-3 MG/3 ML SOLN IH SCH ×2 (19:17→21:12)
[2016-11-03] MEDS: COREG PO SCH ×2 (01:18→10:00)
[2016-11-03] MEDS: APRESOLINE PO SCH ×3 (01:19→15:57)
[2016-11-03] MEDS: DUONEB 0.5 MG-3 MG/3 ML SOLN IH SCH ×4 (01:55→20:30)
[2016-11-03 06:30] LABS: Hematocrit 28.4 % (35.5-45.6); Hemoglobin 9.5 gm/dl (11.8-15.2); Mean Corpuscular HGB Conc 33 % (32-34); Mean Corpuscular Hemoglobin 33 pg (28-32); Mean Corpuscular Volume 97 fl (84-94); Platelet Count 128 K/mm3 (140-440); Red Blood Count 2.92 M/mm3 (3.65-5.03); White Blood Count 3.6 K/mm3 (4.5-11.0)
[2016-11-03 06:44] LABS: Albumin 3.8 g/dL (3.9-5); Albumin/Globulin Ratio 1.3 %; BUN/Creatinine Ratio 4.15; Bilirubin,Total 0.5 mg/dL (0.1-1.2); Calcium 8.9 mg/dL (8.4-10.2); Chloride 98.6 mmol/L (98-107); Potassium 3.8 mmol/L (3.6-5.0); Total Protein 6.8 g/dL (6.3-8.2)
--- NOTE | 2016-11-03 08:11 | Consultation ---
PULMONARY AND CRITICAL CARE CONSULTATION NOTE CONSULTING PHYSICIAN: REASON FOR CONSULTATION: Hypertensive emergency, need for ICU admission. CHIEF COMPLAINT AND HISTORY OF PRESENT ILLNESS: The patient is a 56-year-old -Armenian male with past medical history amongst other things significant both for a diagnosis of hypertension as well as coronary artery disease. He came into the Emergency Room complained of nonspecific pain, it was mostly epigastric pain, left chest pain that radiated to his lower extremity. He had some nausea, no vomiting. He had some shortness of breath. He was brought into the Emergency Room. He stated his pain normally improves with analgesic such as Percocet. While in the Emergency Room amongst other things, he was found to have significantly elevated blood pressures that did not respond to p.r.n. treatments, hence the decision to admit him, to seek ICU admission for institution of IV antihypertensive therapy. When I did stop by to see him, he continued to complain of abdominal pain; it was, however, to a certain extent or reproducible. He would not let me palpate the epigastric region. He stated it was different from his heartburn pain. He also had some reproducibility to palpation over the left lower sternal border. But, again stated that that was not a pain he was talking about. He denied any emesis or overt aspiration. Now with regards to the patient's tobacco use/abuse history, he has 10-15 plus pack year tobacco smoking history. He has been counseled to quit smoking. This really is as much of the history of presentation as I have. He does mention I should say that his antihypertensive medications are affecting his sex life and he is not willing to take his current antihypertensive medications, so admits to an element of noncompliance. PAST MEDICAL HISTORY: Again, significant amongst other things for a diagnosis of coronary artery disease, congestive heart failure, hypertension, hyperlipidemia, end-stage renal disease on dialysis. He is also obese. PAST SURGICAL HISTORY: He has had left upper extremity AV graft placed as well as history of coronary artery stenting. MEDICATIONS: He was on at the time I stopped by to see him, according to the medication administration record included the following: He had been on DuoNeb treatments nebulized q.6 hours, baby aspirin 1 tablet p.o. daily, Lipitor 40 mg p.o. at bedtime, carvedilol 25 mg p.o. b.i.d., Plavix 75 mg p.o. daily, Lovenox 30 mg p.o. daily, hydralazine 25 mg p.o. q. 8 hours, Imdur 30 mg p.o. daily, lisinopril 20 mg p.o. daily, milk of magnesia p.r.n., Cardene drip at 5 mg per hour and Percocet one tablet 5/325 mg p.o. q. 6 hours p.r.n. moderate pain. ALLERGIES: No known drug allergies. DIET: Obese gentleman. Denies acute weight loss or gain in the preceding few weeks to months. FAMILY AND SOCIAL HISTORY: Lives in the community. Denies current alcohol or illicit drug use or abuse. He does smoke tobacco every day, as mentioned above for about 15-pack year smoker. FAMILY HISTORY: Otherwise, there is a family history of coronary artery disease. REVIEW OF SYSTEMS: No loss of consciousness. No new-onset seizures. 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 He does not know if he snores. Denies gross hematochezia or melena. No gross hematuria. No hematemesis. No hemoptysis. No new onset focal weakness. No palpitations. No new-onset seizures. Complete review of systems obtained. Pertinent positives and/or negatives as in body of history above, otherwise noncontributory. PHYSICAL EXAMINATION: VITAL SIGNS: On initial presentation, he was afebrile, temperature 97.6, pulse 81, respiratory rate 21, blood pressure 208/124. Oxygen sats were 96%, inspired oxygen concentration was not recorded. At the time I was seen him, blood pressure was 223/133. HEAD, EYES, EARS, NOSE AND THROAT: Pupils are equal, round, about 3 mm, reactive to light. Extraocular muscle movements appeared intact. Oropharynx is Mallampati #4 oropharynx without significant posterior oropharyngeal erythema. Grossly, no palpable lymph nodes in the supraclavicular or submandibular lymph node chains. He is tender to palpation over the left lower sternal border. LUNGS: Auscultation of both lung parson diminished bilateral breath sounds, slightly prolonged expiratory phase. No active wheezing. HEART: Heart sounds 1 and 2 are heard. At the time of my evaluation, regular rate and rhythm. ABDOMEN: Soft, full, bowel sounds are positive. He is tender in the epigastric area and peripherally. EXTREMITIES: Without overt digital clubbing, cyanosis. He has about trace to 1+ pedal edema. NEUROLOGIC: The exam was grossly nonfocal. LABORATORY DATA: From my review are as follows: White cell count 5000, hemoglobin 10.7, hematocrit 32.7, platelets 129,000. INR 1.17. Serum sodium 142, potassium 4.8, chloride 99, bicarbonate 19, BUN 77, creatinine 14.6, and glucose of 76. Liver function tests essentially within normal limits. Troponin is up at 0.102. LDL cholesterol 64, lipase 74. INR again was 1.17. Radiographic studies have been reviewed. I have also reviewed the radiologist's interpretation and I do agree with it. The median sternotomy wires are in place. There is gross cardiomegaly and slight increasing interstitial markings consistent with mild interstitial edema, no gross pneumothorax, no gross bony fracture that I can see. ASSESSMENT AND PLAN: We have a middle-aged gentleman in with hypertensive emergency and possible non-ST elevation myocardial infarction. From a respiratory standpoint, supplemental oxygen will be given to keep O2 sats greater than or equal to about 92-94%. Aspiration precautions will be maintained. Bronchodilators will be on a p.r.n. basis. He will benefit from bilevel positive air pressure ventilation therapy, both for ventilatory support for treatment of any occult sleep apnea, but also for its beneficial effects on cardiovascular hemodynamics. I will offer him BiPAP to use at bedtime and see if he tolerates. He will benefit from an outpatient polysomnogram. Tobacco abstinence has been consulted. Nicotine patch will be placed and we will follow him clinically. From a cardiovascular standpoint, he will be admitted to the intensive care unit, started on nicardipine drip. I have asked him to discuss change in his medications with his plant electrician rather than simply not be compliant as he is at risk of if he continues to do that. He notes understanding. I will defer heparinization decisions to the plant electrician in terms of an IV heparin drip, for now we will follow him clinically otherwise. From gastrointestinal and nutritional standpoint, oral nutrition will be the feeding modality of choice. I will add GI prophylaxis and aspiration precautions will be maintained. From a renal standpoint, no major electrolyte abnormalities at this point. Dialysis is Wednesday, Wednesday and Wednesday. Nephrology I believe has been consulted. We will defer to them. We will target negative fluid balance and thankfully no overwhelming pulmonary edema at this point. From an infectious disease standpoint, really no signs and symptoms of overwhelming sepsis. No acute indication for antibiotic therapy. We will follow him clinically. From a hematologic standpoint, he is going to be on DVT prophylaxis. While he is in the hospital, we will follow his H and H intermittently. From a PANEL LAY UP WORKER standpoint, the exam is grossly nonfocal at this point. He denies any current headache. We will follow him clinically in the Intensive Care Unit. Again, no acute indication for neuro imaging. Finally, I should mention that I did review the CT of the abdomen and pelvis and no acute process, mild CHF in the long windows. From a general and hospital healthcare maintenance standpoint, he is going to be on GI and DVT prophylaxis. Flu and pneumonia vaccination will be per protocol. Thank you very much for the consult, . We will follow along and make further recommendations as picture progresses/becomes clearer. He is critically ill, requiring life sustaining interventions including intravenous antihypertensives, at this point at risk for further deterioration including if uncontrolled. JOB# [id number] BRENDA/BECKY
[2016-11-03] MEDS ORDERED: LOVENOX SUB-Q SCH (10:00)
--- NOTE | 2016-11-03 10:00 | Progress Note ---
Assessment and Plan Patient complaining epigastric pain. Patient is not in acute respiratory distress. Patient is on room air. O2 satuaration 98%. - Patient Problems (1) Chest pain Current Visit: Yes Status: Acute Qualifiers: Chest pain type: C Plan to address problem: Patient says mostly pain in epigastric are. Radiates to right and left upper quadrants. rECOMMEND TO CONSULT GASTROENTEROLOGY. (2) Elevated troponin I level Current Visit: Yes Status: Acute Plan to address problem: Management as per cardiology. (3) Hypertensive emergency Current Visit: Yes Status: Acute Plan to address problem: Management as per primary care. (4) Hx of CABG Current Visit: No Status: Acute Plan to address problem: Cardiology follow up. (5) Non-ST elevation MT (NSTEMI) Current Visit: No Status: Acute Plan to address problem: Management as per cardiology. (6) Shortness of breath Current Visit: Yes Status: Acute Plan to address problem: Likely from cardiac and renal reasons. Subjective Date of service: 11/03/16 Interval history: Patient complaining epigastric pain. Patient is not in acute respiratory distress. Patient is on room air. O2 satuaration 98%. Objective Vital Signs - 12hr 11/02/16 11/02/16 11/02/16 21:55 22:00 22:15 Temperature Pulse Rate 85 88 83 Pulse Rate [ Anterior Bilateral Throughout] Pulse Rate [ Right] Respiratory Rate Respiratory Rate [Anterior Bilateral Throughout] Blood Pressure 178/105 165/97 177/106 Blood Pressure [Right Arm] O2 Sat by Pulse Oximetry 11/02/16 11/02/16 11/02/16 22:30 22:45 23:00 Temperature Pulse Rate 90 85 87 Pulse Rate [ Anterior Bilateral Throughout] Pulse Rate [ Right] Respiratory Rate Respiratory Rate [Anterior Bilateral Throughout] Blood Pressure 171/88 185/103 179/101 Blood Pressure [Right Arm] O2 Sat by Pulse Oximetry 11/02/16 11/03/16 11/03/16 23:15 00:05 00:30 Temperature 98.5 F 97.7 F Pulse Rate 97 H 89 Pulse Rate [ Anterior Bilateral Throughout] Pulse Rate [ 95 H Right] Respiratory 20 20 Rate Respiratory Rate [Anterior Bilateral Throughout] Blood Pressure 190/110 153/108 Blood Pressure 170/98 [Right Arm] O2 Sat by Pulse 98 Oximetry 11/03/16 11/03/16 11/03/16 01:18 01:19 01:21 Temperature Pulse Rate Pulse Rate [ Anterior Bilateral Throughout] Pulse Rate [ Right] Respiratory 20 Rate Respiratory Rate [Anterior Bilateral Throughout] Blood Pressure 170/98 170/98 Blood Pressure [Right Arm] O2 Sat by Pulse Oximetry 11/03/16 11/03/16 11/03/16 01:56 01:57 01:59 Temperature Pulse Rate 95 H Pulse Rate [ 96 H Anterior Bilateral Throughout] Pulse Rate [ Right] Respiratory 18 Rate Respiratory 18 Rate [Anterior Bilateral Throughout] Blood Pressure Blood Pressure [Right Arm] O2 Sat by Pulse 96 96 Oximetry 11/03/16 11/03/16 06:28 07:35 Temperature 98.7 F Pulse Rate Pulse Rate [ Anterior Bilateral Throughout] Pulse Rate [ 82 Right] Respiratory 16 Rate Respiratory Rate [Anterior Bilateral Throughout] Blood Pressure 190/110 Blood Pressure 175/109 [Right Arm] O2 Sat by Pulse 98 Oximetry Constitutional: no acute distress, alert, agitated Eyes: non-icteric ENT: oropharynx moist Neck: supple, no lymphadenopathy Ascultation: Bilateral: rales (Occassional) Cardiovascular: regular rate and rhythm Gastrointestinal: normoactive bowel sounds, soft, other (Complaining epigastric pain.) Integumentary: normal Extremities: no cyanosis, no edema Neurologic: normal mental status, non-focal exam, pupils equal and round, CN II- XII normal Psychiatric: anxious CBC and BMP: 11/03/16 06:07 11/03/16 06:07 ABG, PT/INR, D-dimer: PT/INR, D-dimer PT 14.8 Sec. (12.2-14.9) 11/02/16 09:28 INR 1.17 (0.87-1.13) H 11/02/16 09:28 Abnormal lab findings: Abnormal Labs 11/03/16 11/03/16 11/03/16 00:25 06:07 06:07 WBC 3.6 L RBC 2.92 L Hgb 9.5 L Hct 28.4 L MCV 97 H MCH 33 H Plt Count 128 L [place] % (Auto) 12.1 H Eos % (Auto) 5.0 H Lymph # 0.7 L BUN 44 H Creatinine 10.6 H Glucose 50 L Troponin T 0.111 H* Albumin 3.8 L Chest x-ray: report reviewed (ardiomegaly, early congestion, S/P CABG.), image reviewed
--- NOTE | 2016-11-03 10:15 | Progress Note ---
Assessment and Plan (1) ESRD on HD L AVF with + thrill and bruit HD again today, UF goal 3-4 L as tolerated will assess dialysis needs daily strict I&O daily weights renally dose meds renal diet (2) HTN emergency off nicardin gtt will add amlodipine 10 mg UF as above (3) Anemia in CKD Epogen as needed with HD (4) chest pain cardiology on board Thank you for this consult. will follow with you daily. Subjective Date of service: 11/03/16 Principal diagnosis: ESRD Interval history: breathing is improving since admission Objective - Vital Signs Vital signs: Vital Signs - 12hr 11/02/16 11/02/16 11/02/16 22:15 22:30 22:45 Temperature Pulse Rate 83 90 85 Pulse Rate [ Anterior Bilateral Throughout] Pulse Rate [ Right] Respiratory Rate Respiratory Rate [Anterior Bilateral Throughout] Blood Pressure 177/106 171/88 185/103 Blood Pressure [Right Arm] O2 Sat by Pulse Oximetry 11/02/16 11/02/16 11/03/16 23:00 23:15 00:05 Temperature 98.5 F Pulse Rate 87 97 H 89 Pulse Rate [ Anterior Bilateral Throughout] Pulse Rate [ Right] Respiratory 20 Rate Respiratory Rate [Anterior Bilateral Throughout] Blood Pressure 179/101 190/110 153/108 Blood Pressure [Right Arm] O2 Sat by Pulse Oximetry 11/03/16 11/03/16 11/03/16 00:30 01:18 01:19 Temperature 97.7 F Pulse Rate Pulse Rate [ Anterior Bilateral Throughout] Pulse Rate [ 95 H Right] Respiratory 20 Rate Respiratory Rate [Anterior Bilateral Throughout] Blood Pressure 170/98 170/98 Blood Pressure 170/98 [Right Arm] O2 Sat by Pulse 98 Oximetry 11/03/16 11/03/16 11/03/16 01:21 01:56 01:57 Temperature Pulse Rate 95 H Pulse Rate [ Anterior Bilateral Throughout] Pulse Rate [ Right] Respiratory 20 18 Rate Respiratory Rate [Anterior Bilateral Throughout] Blood Pressure Blood Pressure [Right Arm] O2 Sat by Pulse 96 96 Oximetry 11/03/16 11/03/16 11/03/16 01:59 06:28 07:35 Temperature 98.7 F Pulse Rate Pulse Rate [ 96 H Anterior Bilateral Throughout] Pulse Rate [ 82 Right] Respiratory 16 Rate Respiratory 18 Rate [Anterior Bilateral Throughout] Blood Pressure 190/110 Blood Pressure 175/109 [Right Arm] O2 Sat by Pulse 98 Oximetry - General Appearance General appearance: well-developed, well-nourished, appears stated age EENT: ATNC, PERRL, mucous membranes moist Neck: no JVD, no carotid bruit Respiratory: Present: Clear to Ascultation. Absent: Ronchi, Wheezes Cardiology: regular, S1S2 Gastrointestinal: normoactive bowel sounds, no tenderness, no distended Integumentary: no rash, warm and dry Neurologic: no focal deficit, no asterixis, alert and oriented x3 Musculoskeletal: other (R AVF with + thrill and bruit) Psychiatric: mood/affect appropriate, cooperative - Lab 11/03/16 06:07 11/03/16 06:07 Most recent lab results Calcium 8.9 mg/dL (8.4-10.2) 11/03/16 06:07 Phosphorus 4.3 mg/dL (2.5-4.5) 11/03/16 06:07
--- NOTE | 2016-11-03 12:17 | Progress Note ---
Assessment and Plan Atypical chest pain-->resolved no acute EKG changes stress MPI 07/2016: no significant ischemia LHC 02/2016: patent bypass grafts with distal disease in [place] rca and circumflex territory-->medical mgt. Echo 07/2016: EF 40-45%, RVSP 60-65mmHg continue imdur 30mg daily Epigastric pain consider GI evaluation Elevated troponin-->likely due to ESRD mildly elevated but flat Accelerated hypertension dialysis per nephrology continue coreg, lisinopril, imdur, norvasc CAD /p CABG and PCI continue ASA, Plavix, Lipitor ESRD on HD Anemia Depression Tobacco abuse Stable cardiac status. Continue current management. The patient has been seen in conjunction with Dr. Julien who agrees with the assessment and plan of care. Subjective Date of service: 11/03/16 Principal diagnosis: ESRD Interval history: The patient is seen and examined on dialysis. He continues to c/o epigastric pain. No chest pain or shortness of breath. Sinus rhythm on the monitor. Objective Last Vital Signs Temp 98.7 F 11/03/16 07:35 Pulse 82 11/03/16 07:35 Resp 16 11/03/16 07:35 BP 175/109 11/03/16 07:35 Pulse Ox 98 11/03/16 07:35 - Physical Examination General: No Apparent Distress HEENT: Positive: Normocephaly, Mucus Membranes Moist Neck: Positive: neck supple, trachea midline Cardiac: Positive: Reg Rate and Rhythm, S1/S2 Lungs: Positive: clear to auscultation Neuro: Positive: Grossly Intact Abdomen: Positive: Soft, Active Bowel Sounds. Negative: Tender Skin: Negative: Rash Extremities: Present: +1 Edema (bilateral lower legs) - Labs and Meds Cardiac Enzymes 11/03/16 Range/Units 06:07 AST 13 (5-40) units/L CBC 11/03/16 Range/Units 06:07 WBC 3.6 L (4.5-11.0) K/mm3 RBC 2.92 L (3.65-5.03) M/mm3 Hgb 9.5 L (11.8-15.2) gm/dl Hct 28.4 L (35.5-45.6) % Plt Count 128 L (140-440) K/mm3 Lymph # 0.7 L (1.2-5.4) K/mm3 [place] # 0.4 (0.0-0.8) K/mm3 Eos # 0.2 (0.0-0.4) K/mm3 Baso # 0.0 (0.0-0.1) K/mm3 Comprehensive Metabolic Panel 11/03/16 Range/Units 06:07 Sodium 142 (137-145) mmol/L Potassium 3.8 D (3.6-5.0) mmol/L Chloride 98.6 (98-107) mmol/L Carbon Dioxide 26 D (22-30) mmol/L BUN 44 H (9-20) mg/dL Creatinine 10.6 H (0.8-1.5) mg/dL Glucose 50 L (75-100) mg/dL Calcium 8.9 (8.4-10.2) mg/dL AST 13 (5-40) units/L ALT 18 (7-56) units/L Alkaline Phosphatase 79 (35-129) units/L Total Protein 6.8 (6.3-8.2) g/dL Albumin 3.8 L (3.9-5) g/dL - Imaging and Cardiology EKG: image reviewed Echo: report reviewed (07/2016: EF 40-45%, RVSP 60-65mmHg) - Telemetry EKG Rhythm: Sinus Rhythm - EKG Sinus rhythms and dysrhythmias: sinus rhythm Chamber hypertrophy or enlargement: left ventricular hypertro Repolarization changes or abnormalities: repolarization abn secondary to ventricular hypertrophy
[2016-11-03] MEDS ORDERED: ZOFRAN IV PRN (12:44)
[2016-11-03] MEDS ORDERED: APRESOLINE IV PRN (14:10)
[2016-11-03] MEDS ORDERED: NACL 0.9 (PRIMING MACHINE ONLY DIALYSIS) MC ONE (14:15)
--- NOTE | 2016-11-03 14:20 | Progress Note ---
Assessment and Plan Assessment and plan: Atypical chest pain * no acute EKG changes * s/p stress MPI 07/2016: no significant ischemia * h/o LHC 02/2016: patent bypass grafts with distal disease in [place] rca and circumflex territory-->medical mgt. * Echo 07/2016: EF 40-45%, RVSP 60-65mmHg * continue imdur 30mg daily, medical Mx per cardiology Epigastric pain * will consult GI Elevated troponin * likely due to ESRD Accelerated hypertension * continue coreg, lisinopril, imdur, norvasc * non compliant with med, refused meds this am CAD /p CABG and PCI * continue ASA, Plavix, Lipitor ESRD on HD, nephrology following Anemia of CD, monitor H and h Depression, cont home meds Tobacco abuse, counselled History Interval history: Patient seen and examined. Medical records and medication list reviewed. No acute event overnight noted by the RN. Patient denies any chest pain or difficulty breathing. he is been c/o epigastric pain on eating. Patient refused his meds this morning, when he was asked about that he became very rude and stated that he will take meds not per hospital protocol. he will take his meds when he wants. Eventhough he c/o epigastric pain with food, per RN he is actually tolerating diet without any difficulty, and freely ambulates to nursing station to seek pain meds and extra food. Discussed plan of care at bedside with patient. Hospitalist Physical - Physical exam Narrative exam: GENERAL: well-developed and well-nourished AAM lying on bed appeared to be in no discomfort. HEENT: Normocephalic. Atraumatic. No conjunctival congestion or icterus. Patient has moist mucous membranes. NECK: Supple. Trachea midline. CHEST/LUNGS: Clear to auscultated bilaterally, breathing nonlabored. No wheezes crackles or rhonchi. HEART/CARDIOVASCULAR: Regular in rate and rhythm. S1 and S2 positive. ABDOMEN: Abdomen is soft, nontender. Patient has normal bowel sounds. SKIN: There is no rash. Warm and dry. NEURO: No focal motor deficit. Follows command. MUSCULOSKELETAL: No joint effusion or tenderness. EXTRIMITY: No edema, no cyanosis or clubbing. PSYCH: Appears to be very rude. - Constitutional Vitals: Temp Pulse Resp BP Pulse Ox 98.4 F 76 20 186/118 98 11/03/16 10:20 11/03/16 14:00 11/03/16 12:50 11/03/16 14:00 11/03/16 07:35 General appearance: Present: no acute distress, well-nourished Results - Labs CBC & Chem 7: 11/04/16 07:41 11/04/16 07:41 Labs: Laboratory Last Values WBC 3.6 K/mm3 (4.5-11.0) L 11/03/16 06:07 RBC 2.92 M/mm3 (3.65-5.03) L 11/03/16 06:07 Hgb 9.5 gm/dl (11.8-15.2) L 11/03/16 06:07 Hct 28.4 % (35.5-45.6) L 11/03/16 06:07 MCV 97 fl (84-94) H 11/03/16 06:07 MCH 33 pg (28-32) H 11/03/16 06:07 MCHC 33 % (32-34) 11/03/16 06:07 RDW 15.0 % (13.2-15.2) 11/03/16 06:07 Plt Count 128 K/mm3 (140-440) L 11/03/16 06:07 Lymph % (Auto) 20.3 % (13.4-35.0) 11/03/16 06:07 Early % (Auto) 12.1 % (0.0-7.3) H 11/03/16 06:07 Eos % (Auto) 5.0 % (0.0-4.3) H 11/03/16 06:07 Baso % (Auto) 1.0 % (0.0-1.8) 11/03/16 06:07 Lymph # 0.7 K/mm3 (1.2-5.4) L 11/03/16 06:07 Early # 0.4 K/mm3 (0.0-0.8) 11/03/16 06:07 Eos # 0.2 K/mm3 (0.0-0.4) 11/03/16 06:07 Baso # 0.0 K/mm3 (0.0-0.1) 11/03/16 06:07 Seg Neutrophils % 61.6 % (40.0-70.0) 11/03/16 06:07 Seg Neutrophils # 2.2 K/mm3 (1.8-7.7) 11/03/16 06:07 PT 14.8 Sec. (12.2-14.9) 11/02/16 09:28 INR 1.17 (0.87-1.13) H 11/02/16 09:28 Sodium 142 mmol/L (137-145) 11/03/16 06:07 Potassium 3.8 mmol/L (3.6-5.0) D 11/03/16 06:07 Chloride 98.6 mmol/L (98-107) 11/03/16 06:07 Carbon Dioxide 26 mmol/L (22-30) D 11/03/16 06:07 Anion Gap 21 mmol/L 11/03/16 06:07 BUN 44 mg/dL (9-20) H 11/03/16 06:07 Creatinine 10.6 mg/dL (0.8-1.5) H 11/03/16 06:07 Estimated GFR 6 ml/min 11/03/16 06:07 BUN/Creatinine Ratio 4.15 % 11/03/16 06:07 Glucose 50 mg/dL (75-100) L 11/03/16 06:07 Calcium 8.9 mg/dL (8.4-10.2) 11/03/16 06:07 Phosphorus 4.3 mg/dL (2.5-4.5) 11/03/16 06:07 Total Bilirubin 0.5 mg/dL (0.1-1.2) 11/03/16 06:07 Direct Bilirubin < 0.2 mg/dL (0-0.2) 11/02/16 09:28 AST 13 units/L (5-40) 11/03/16 06:07 ALT 18 units/L (7-56) 11/03/16 06:07 Alkaline Phosphatase 79 units/L (35-129) 11/03/16 06:07 Troponin T 0.111 ng/mL (0.00-0.029) H* 11/03/16 00:25 NT-Pro-B Natriuret Pep 33665 pg/mL (0-900) H 11/02/16 09:28 Total Protein 6.8 g/dL (6.3-8.2) 11/03/16 06:07 Albumin 3.8 g/dL (3.9-5) L 11/03/16 06:07 Albumin/Globulin Ratio 1.3 % 11/03/16 06:07 Triglycerides 101 mg/dL (2-149) 11/02/16 06:08 Cholesterol 134 mg/dL (50-199) 11/02/16 06:08 LDL Cholesterol Direct 67 mg/dL (50-130) 11/02/16 06:08 HDL Cholesterol 47 mg/dL (40-59) 11/02/16 06:08 Cholesterol/HDL Ratio 2.85 % 11/02/16 06:08 Lipase 74 units/L (13-60) H 11/02/16 09:28
[2016-11-03] MEDS: PLAVIX PO SCH (15:57)
[2016-11-03] MEDS: PEPCID PO SCH (15:57)
[2016-11-03] MEDS: BABY ASPIRIN PO SCH (15:57)
[2016-11-03] MEDS: NORVASC PO SCH (15:57)
[2016-11-03] MEDS: ZESTRIL PO SCH (16:01)
[2016-11-03] MEDS: IMDUR PO SCH (16:01)
[2016-11-03] MEDS ORDERED: PROVENTIL IH PRN (18:07)
[2016-11-03 18:22] LABS: ISTAT Base Excess 5; ISTAT DEVICE 0; ISTAT HCO3 28.4; ISTAT PH 7.505 (7.35-7.45); ISTAT PO2 58 (80-105); ISTAT SO2 92; ISTAT TCO2 30
--- NOTE | 2016-11-03 20:47 | Gastroenterology Consultation ---
History of Present Illness - Reason for Consult Consult date: 11/03/16 abdominal pain Requesting physician: VIDAL WALL - History of Present Illness Mr Tubbs is a 56 yo aam with PMH as below including CAD s/p CABG and ESRD who presents with 2+ month history of epigastric pain, followed by 1-2 days of chest pain/pressure prior to admission. His chest pain has resolved, and is following by cardiology. Pt has mild troponin elevation felt to be 2/2 ESRD. Pt reports having 2+ month history of mid/epigastric abdominal pain. These symptoms occur daily, mostly constant, occasionally worsened with meals. Denies n/v, change in bowel habits, NSAIDs, significant reflux sx's, or dysphagia. He denies having prior endoscopy or screening colonoscopy. Reports he has had multiple family members including father diagnosed with colon cancer in the past. He had previous plans to have procedures done, but this did not occur due to lack of communication per pt. Past History Past Medical History: acute AR, arrhythmia, CAD, heart failure, hypertension. denies: atrial fib, anemia, arthritis, cancer, COPD, diabetes, dialysis, DVT, ESRD, GERD, hepatitis, HIV/AIDS, hyperthyroidism, hyperlipidemia, hypothyroidism , liver disease, migraines, pulmonary embolism, renal failure, stroke, sarcoidosis Past Surgical History: Other (access placement.) Social history: no significant social history Family history: CAD Medications and Allergies Allergies Allergy/AdvReac Type Severity Reaction Status Date / Time No Known Allergies Allergy Verified 03/23/14 08:19 Home Medications Medication Instructions Recorded Confirmed Last Taken Type Metoprolol [Lopressor TAB] 25 mg PO BID #60 tablet 08/19/16 11/02/16 10/29/16 Rx hydrALAZINE [Apresoline TAB] 25 mg PO Q8HR #90 tablet 08/19/16 11/02/16 Rx Carvedilol [Coreg] 25 mg PO BID 11/02/16 11/02/16 10/29/16 History Active Meds: Active Medications Al Hydrox/Mg Hydrox/Simethicone (Alum-Mag Hydrox-Simeth [id number]/5ml) 30 ml PO Q4H PRN PRN Reason: Indigestion Albuterol (Proventil) 2.5 mg IH Q4HRT PRN PRN Reason: Shortness Of Breath Albuterol/Ipratropium (Duoneb 0.5 Mg-3 Mg/3 Ml Soln) 1 ampul IH TIDRT PENDING SALE TO [facility] Last Admin: 11/03/16 20:30 Dose: 1 ampul Amlodipine Besylate (Norvasc) 10 mg PO QDAY PENDING SALE TO [facility] Last Admin: 11/03/16 15:57 Dose: 10 mg Aspirin (Baby Aspirin) 81 mg PO QDAY PENDING SALE TO [facility] Last Admin: 11/03/16 15:57 Dose: 81 mg Atorvastatin Calcium (Lipitor) 40 mg PO QHS PENDING SALE TO [facility] Last Admin: 11/03/16 01:56 Dose: Not Given Bisacodyl (Dulcolax) 10 mg SD QDAY PRN PRN Reason: constipation unrelieved by MOM Carvedilol (Coreg) 25 mg PO BID PENDING SALE TO [facility] Last Admin: 11/03/16 10:00 Dose: Not Given Clopidogrel Bisulfate (Plavix) 75 mg PO QDAY PENDING SALE TO [facility] Last Admin: 11/03/16 15:57 Dose: 75 mg Famotidine (Pepcid) 20 mg PO QDAY PENDING SALE TO [facility] Last Admin: 11/03/16 15:57 Dose: 20 mg Hydralazine HCl (Apresoline) 25 mg PO Q8HR PENDING SALE TO [facility] Last Admin: 11/03/16 15:57 Dose: 25 mg Hydralazine HCl (Apresoline) 10 mg IV Q30MIN PRN PRN Reason: HTN SYS>180 HUY>100 Isosorbide Mononitrate (Imdur) 30 mg PO QDAY PENDING SALE TO [facility] Last Admin: 11/03/16 16:01 Dose: 30 mg Lisinopril (Zestril) 20 mg PO QDAY PENDING SALE TO [facility] Last Admin: 11/03/16 16:01 Dose: 20 mg Magnesium Hydroxide (Milk Of Magnesia) 30 ml PO Q4H PRN PRN Reason: Constipation Ondansetron HCl (Zofran) 4 mg IV Q8H PRN PRN Reason: Nausea And Vomiting Oxycodone/Acetaminophen (Percocet 5/325) 1 tab PO Q6H PRN PRN Reason: Pain, Moderate (4-6) Review of Systems - Review of Systems All systems: negative Exam - Constitutional Vital Signs: Temp Pulse Resp BP Pulse Ox 98.4 F 96 H 16 175/114 99 11/03/16 10:20 11/03/16 20:30 11/03/16 20:30 11/03/16 15:45 11/03/16 20:35 General appearance: no acute distress - EENT Eyes: PERRL, EOM intact ENT: hearing intact, clear oral mucosa - Neck Neck: supple - Respiratory Respiratory effort: normal Respiratory: bilateral: CTA - Cardiovascular Rhythm: regular Heart Sounds: Present: S1 & S2 Extremities: no ischemia, No edema - Gastrointestinal General gastrointestinal: Present: soft, tender (+ mid and epigastric ttp, no rebound/guarding, + umbilical hernia (reducible but painful)) - Integumentary Integumentary: Present: clear, warm - Musculoskeletal Musculoskeletal: normal - Neurologic Neurological: alert and oriented x3 - Psychiatric Psychiatric: appropriate mood/affect - Labs CBC & Chem 7: 11/03/16 06:07 11/03/16 06:07 Lab Results: Laboratory Results - last 24 hr 11/03/16 11/03/16 11/03/16 00:25 06:07 06:07 WBC 3.6 L RBC 2.92 L Hgb 9.5 L Hct 28.4 L MCV 97 H MCH 33 H MCHC 33 RDW 15.0 Plt Count 128 L Lymph % (Auto) 20.3 [place] % (Auto) 12.1 H Eos % (Auto) 5.0 H Baso % (Auto) 1.0 Lymph # 0.7 L [place] # 0.4 Eos # 0.2 Baso # 0.0 Seg Neutrophils % 61.6 Seg Neutrophils # 2.2 POC ABG pH POC ABG pCO2 POC ABG pO2 POC ABG HCO3 POC ABG Total CO2 POC ABG O2 Sat POC ABG Base Excess FiO2 Sodium 142 Potassium 3.8 D Chloride 98.6 Carbon Dioxide 26 D Anion Gap 21 BUN 44 H Creatinine 10.6 H Estimated GFR 6 BUN/Creatinine Ratio 4.15 Glucose 50 L Calcium 8.9 Phosphorus Total Bilirubin 0.5 AST 13 ALT 18 Alkaline Phosphatase 79 Troponin T 0.111 H* Total Protein 6.8 Albumin 3.8 L Albumin/Globulin Ratio 1.3 11/03/16 11/03/16 06:07 18:03 WBC RBC Hgb Hct MCV MCH MCHC RDW Plt Count Lymph % (Auto) [place] % (Auto) Eos % (Auto) Baso % (Auto) Lymph # [place] # Eos # Baso # Seg Neutrophils % Seg Neutrophils # POC ABG pH 7.505 H POC ABG pCO2 36.0 POC ABG pO2 58 L POC ABG HCO3 28.4 POC ABG Total CO2 30 POC ABG O2 Sat 92 POC ABG Base Excess 5 FiO2 21 Sodium Potassium Chloride Carbon Dioxide Anion Gap BUN Creatinine Estimated GFR BUN/Creatinine Ratio Glucose Calcium Phosphorus 4.3 Total Bilirubin AST ALT Alkaline Phosphatase Troponin T Total Protein Albumin Albumin/Globulin Ratio - Imaging CT Scan: report reviewed Assessment and Plan 1. abdominal pain - pt with 2+ month history of mid and epigastric abdominal pain. Presented with atypical chest pain which has since resolved, however abdominal symptoms have persisted. Cards following, not felt to be cardiac etiology. lipase mildy elevated, LFT's normal. CT w/o acute findings. broad ddx includes PUD, umbilical hernia related pain (reducible although pt has tenderness), vascular etiology (consider vascular study/angiography), or functional abdominal pain. 2. screening colonoscopy for high risk pt - pt with family h/o colon cancer with no prior screening exam. Colonoscopy and EGD (for work-up of above) can be done as outpatient, or during hospitalization if team anticipates longer hospital stay.
[2016-11-04] MEDS: DUONEB 0.5 MG-3 MG/3 ML SOLN IH SCH (07:44)
[2016-11-04 08:32] LABS: Hematocrit 31.3 % (35.5-45.6); Hemoglobin 10.5 gm/dl (11.8-15.2); Mean Corpuscular HGB Conc 33 % (32-34); Mean Corpuscular Hemoglobin 33 pg (28-32); Mean Corpuscular Volume 97 fl (84-94); Platelet Count 147 K/mm3 (140-440); Red Blood Count 3.21 M/mm3 (3.65-5.03); Red Cell Distribution Width 15.2 % (13.2-15.2); White Blood Count 3.7 K/mm3 (4.5-11.0)
[2016-11-04 08:46] LABS: BUN/Creatinine Ratio 3.29; Chloride 98.9 mmol/L (98-107); Phosphorous 4.4 mg/dL (2.5-4.5); Potassium 3.7 mmol/L (3.6-5.0)
[2016-11-04] MEDS: IMDUR PO SCH (09:45)
[2016-11-04] MEDS ORDERED: APRESOLINE PO SCH (09:45)
[2016-11-04] MEDS: NORVASC PO SCH (09:46)
[2016-11-04] MEDS: ZESTRIL PO SCH (09:46)
[2016-11-04] MEDS: BABY ASPIRIN PO SCH (09:46)
[2016-11-04] MEDS: PLAVIX PO SCH (09:46)
[2016-11-04] MEDS: COREG PO SCH (09:47)
[2016-11-04] MEDS: PEPCID PO SCH (09:47)
[2016-11-04 09:49] VITALS: BP 190/110
[2016-11-04 10:01] LABS: Blastocytes % (Manual) 0 %
[2016-11-04 10:02] LABS: Anisocytosis 1+; Basophils % (Manual) 0 % (0.0-1.8)
[2016-11-04 10:03] LABS: Diff Status Complete; Microcytosis Few; Stomatocytes Rare
--- NOTE | 2016-11-04 10:09 | Gastroenterology Progress Note ---
Assessment and Plan 1. Abdominal Pain - pt with 2+ month history of mid and epigastric abdominal pain. Presented with atypical chest pain which has since resolved, however abdominal symptoms have persisted. Cards following, not felt to be cardiac etiology. lipase mildy elevated, LFT's normal. CT w/o acute findings. broad ddx includes PUD, umbilical hernia related pain (reducible although pt has tenderness), vascular etiology (consider vascular study/angiography), or functional abdominal pain. 2. Screening Colonoscopy for high risk pt - pt with family h/o colon cancer with no prior screening exam. Colonoscopy and EGD (for work-up of above) can be done as outpatient. -Patient noted to be on Plavix/ ASA. Will need cardiac clearance to come off of A/C and will need to be off x 5 days and will need to be scheduled as an outpatient. Subjective Date of service: 11/04/16 Interval history: No acute process overnight. Objective - Constitutional Vitals: Temp Pulse Resp BP Pulse Ox 98.4 F 85 16 190/110 99 11/04/16 05:00 11/04/16 09:47 11/04/16 08:01 11/04/16 09:46 11/04/16 07:46 General appearance: no acute distress - EENT Eyes: EOM intact ENT: hearing intact - Neck Neck: supple - Respiratory Respiratory: bilateral: CTA - Cardiovascular Rhythm: regular Heart Sounds: Present: S1 & S2, systolic murmur - Extremities Extremities: Full ROM - Gastrointestinal General gastrointestinal: Present: soft, non-tender, normal bowel sounds - Integumentary Integumentary: Present: warm, dry - Neurologic Neurological: alert and oriented x3 - Psychiatric Psychiatric: appropriate mood/affect, cooperative - Labs CBC & Chem 7: 11/04/16 07:41 11/04/16 07:41 Labs: Laboratory Results - last 24 hr 11/03/16 11/04/16 11/04/16 18:03 07:41 07:41 WBC 3.7 L RBC 3.21 L Hgb 10.5 L Hct 31.3 L MCV 97 H MCH 33 H MCHC 33 RDW 15.2 Plt Count 147 [place] % (Auto) Holiday Detector Operator Add Manual Diff Complete Total Counted 100 Seg Neuts % (Manual) 57.0 Band Neutrophils % 0 Lymphocytes % (Manual) 25.0 Reactive Lymphs % (Man) 0 Monocytes % (Manual) 10.0 H Eosinophils % (Manual) 8.0 H Basophils % (Manual) 0 Metamyelocytes % 0 Myelocytes % 0 Promyelocytes % 0 Blast Cells % 0 Nucleated RBC % Not Reportable Seg Neutrophils # Man 2.1 Band Neutrophils # 0.0 Lymphocytes # (Manual) 0.9 L Abs React Lymphs (Man) 0.0 Monocytes # (Manual) 0.4 Eosinophils # (Manual) 0.3 Basophils # (Manual) 0.0 Metamyelocytes # 0.0 Myelocytes # 0.0 Promyelocytes # 0.0 Blast Cells # 0.0 WBC Morphology Not Reportable Hypersegmented Neuts Not Reportable Hyposegmented Neuts Not Reportable Hypogranular Neuts Not Reportable Smudge Cells Not Reportable Toxic Granulation Not Reportable Toxic Vacuolation Not Reportable Dohle Bodies Not Reportable Pelger-Huet Anomaly Not Reportable Ashok Rods Not Reportable Platelet Estimate Appears normal Clumped Platelets Not Reportable Plt Clumps, EDTA Not Reportable Large Platelets Not Reportable Giant Platelets Not Reportable Platelet Satelliting Not Reportable Plt Morphology Comment Not Reportable RBC Morphology Not Reportable Dimorphic RBCs Not Reportable Polychromasia Not Reportable Hypochromasia Not Reportable Poikilocytosis Not Reportable Anisocytosis 1+ Microcytosis Few Macrocytosis Not Reportable Spherocytes Not Reportable Pappenheimer Bodies Not Reportable Sickle Cells Not Reportable Target Cells Not Reportable Tear Drop Cells Not Reportable Ovalocytes Not Reportable Stomatocytes Rare Helmet Cells Not Reportable Daugherty-[place] Bodies Not Reportable [place] Rings Not Reportable [place] Cells Not Reportable Bite Cells Not Reportable Crenated Cell Not Reportable Elliptocytes Not Reportable Acanthocytes (Spur) Not Reportable Rouleaux Not Reportable Hemoglobin C Crystals Not Reportable Schistocytes Not Reportable Malaria parasites Not Reportable Mello Bodies Not Reportable Hem Pathologist Commnt No POC ABG pH 7.505 H POC ABG pCO2 36.0 POC ABG pO2 58 L POC ABG HCO3 28.4 POC ABG Total CO2 30 POC ABG O2 Sat 92 POC ABG Base Excess 5 FiO2 21 Sodium 143 Potassium 3.7 Chloride 98.9 Carbon Dioxide 28 Anion Gap 20 BUN 26 H Creatinine 7.9 H Estimated GFR 9 BUN/Creatinine Ratio 3.29 Glucose 82 Calcium 9.0 Phosphorus 4.4
--- NOTE | 2016-11-04 10:57 | Progress Note ---
Assessment and Plan - Patient Problems (1) ESRD (end stage renal disease) on dialysis Current Visit: No Status: Chronic Plan to address problem: Received hemodialysis on Wednesday and Wednesday Will hemodialyze patient again today Fluid restriction of 32 ounces per day Renally dose medications Obtain daily weights Monitor I/O's Assess dialysis needs daily (2) Hypertension Current Visit: No Status: Acute Qualifiers: Hypertension type: H Plan to address problem: Received all blood pressure medications today at 9:40 a.m. RN to repeat blood pressures Low salt diet HD today Subjective Date of service: 11/04/16 Principal diagnosis: ESRD Interval history: Patient seen lying in bed. No acute events overnight. Objective - Vital Signs Vital signs: Vital Signs - 12hr 11/04/16 11/04/16 11/04/16 00:10 01:59 05:00 Temperature 98.0 F 98.4 F Pulse Rate Pulse Rate [ Anterior Bilateral Throughout] Pulse Rate [ 90 78 Right] Respiratory 20 18 20 Rate Respiratory Rate [Anterior Bilateral Throughout] Blood Pressure Blood Pressure 158/80 168/100 [Right Arm] O2 Sat by Pulse 98 Oximetry 11/04/16 11/04/16 11/04/16 07:44 07:46 08:01 Temperature Pulse Rate Pulse Rate [ 87 80 Anterior Bilateral Throughout] Pulse Rate [ Right] Respiratory Rate Respiratory 16 16 Rate [Anterior Bilateral Throughout] Blood Pressure Blood Pressure [Right Arm] O2 Sat by Pulse 99 Oximetry 11/04/16 11/04/16 11/04/16 09:45 09:46 09:47 Temperature Pulse Rate 85 85 85 Pulse Rate [ Anterior Bilateral Throughout] Pulse Rate [ Right] Respiratory Rate Respiratory Rate [Anterior Bilateral Throughout] Blood Pressure 190/110 190/110 Blood Pressure [Right Arm] O2 Sat by Pulse Oximetry - General Appearance General appearance: well-developed, appears stated age EENT: ATNC, PERRL, hearing intact, vision intact Neck: no JVD, supple Respiratory: Present: Clear to Ascultation Cardiology: regular, S1S2 Gastrointestinal: normoactive bowel sounds Integumentary: warm and dry Neurologic: alert and oriented x3 Musculoskeletal: other (No edema. AVF functional) Psychiatric: mood/affect appropriate, cooperative - Lab 11/04/16 07:41 11/04/16 07:41 Most recent lab results Calcium 9.0 mg/dL (8.4-10.2) 11/04/16 07:41 Phosphorus 4.4 mg/dL (2.5-4.5) 11/04/16 07:41
[2016-11-04] MEDS ORDERED: NACL 0.9% 100 ML IV PRN (11:11)
--- NOTE | 2016-11-04 11:17 | Progress Note ---
Assessment and Plan Atypical chest pain-->resolved no acute EKG changes stress MPI 07/2016: no significant ischemia LHC 02/2016: patent bypass grafts with distal disease in [place] rca and circumflex territory-->medical mgt. Echo 07/2016: EF 40-45%, RVSP 60-65mmHg continue imdur 30mg daily Epigastric pain consider GI evaluation Elevated troponin-->likely due to ESRD mildly elevated but flat Accelerated hypertension dialysis per nephrology continue coreg, lisinopril, hydralazine, imdur, norvasc CAD s/p CABG and PCI (2013) continue ASA, Plavix, Lipitor ESRD on HD Anemia Depression Tobacco abuse Continue current management. Patient is stable from a cardiac standpoint to proceed with EGD/colonoscopy. Okay to hold ASA and plavix prior to procedure. The patient has been seen in conjunction with Dr. Julien who agrees with the assessment and plan of care. Subjective Date of service: 11/04/16 Principal diagnosis: atypical chest pain, elevated troponin Interval history: The patient is resting in bed. He continues to c/o epigastric pain. No chest pain or shortness of breath. Sinus rhythm on the monitor. Objective Last Vital Signs Temp 98.4 F 11/04/16 05:00 Pulse 85 11/04/16 09:47 Resp 16 11/04/16 08:01 BP 190/110 11/04/16 09:46 Pulse Ox 99 11/04/16 07:46 - Physical Examination General: No Apparent Distress HEENT: Positive: Normocephaly, Mucus Membranes Moist Neck: Positive: neck supple, trachea midline Cardiac: Positive: Reg Rate and Rhythm, S1/S2 Lungs: Positive: clear to auscultation Neuro: Positive: Grossly Intact Abdomen: Positive: Soft, Active Bowel Sounds. Negative: Tender Skin: Negative: Rash Extremities: Absent: edema - Labs and Meds CBC 11/04/16 Range/Units 07:41 WBC 3.7 L (4.5-11.0) K/mm3 RBC 3.21 L (3.65-5.03) M/mm3 Hgb 10.5 L (11.8-15.2) gm/dl Hct 31.3 L (35.5-45.6) % Plt Count 147 (140-440) K/mm3 Comprehensive Metabolic Panel 11/04/16 Range/Units 07:41 Sodium 143 (137-145) mmol/L Potassium 3.7 (3.6-5.0) mmol/L Chloride 98.9 (98-107) mmol/L Carbon Dioxide 28 (22-30) mmol/L BUN 26 H (9-20) mg/dL Creatinine 7.9 H (0.8-1.5) mg/dL Glucose 82 (75-100) mg/dL Calcium 9.0 (8.4-10.2) mg/dL - Imaging and Cardiology EKG: image reviewed Echo: report reviewed (07/2016: EF 40-45%, RVSP 60-65mmHg) - Telemetry EKG Rhythm: Sinus Rhythm - EKG Sinus rhythms and dysrhythmias: sinus rhythm Chamber hypertrophy or enlargement: left ventricular hypertro Repolarization changes or abnormalities: repolarization abn secondary to ventricular hypertrophy
--- NOTE | 2016-11-04 11:57 | Query- Dyspnea ---
Karl Milian Date:_11/04/16 Extruder Operator Multiple/CDS:Melisa Esquivel Phone#:_[phone] Exercise your independent professional judgment when responding to query. Questions asked do not imply a particular answer is desired or expected. We greatly appreciate your clarification on this issue. Clinical Documentation States: Patient 56-year-old male with a history of myocardial infarction and coronary disease CABG approximately 2 years ago, hyperlipidemia, anemia, end-stage renal disease. Patient presents after missing hemodialysis for 1 week. Patient stated shortly after beginning to have shortness of breath and chest pain. Clinical Findings Show: ABG:PH:7.505, PaO2: 58, SaO2: 74 RR: 33 BP: 208/104 Please clarify if the patient had any of the following conditions based on the above clinical findings: [ X] Respiratory Failure [ X] Acute [ ] Acute on Chronic [ ] Chronic [ ] Respiratory failure due to trauma [ ] Acute Respiratory Distress Syndrome [ ] Other: [ ] Unable to determine [ ] Comment/Explanation: Present on Admission: [X] Yes (Y) [ ] Clinically undeterminable (W) [ ] No (N) Please also document response in your Progress Notes and/or Discharge Summary and indicate if the condition was present on admission. ESTEBAN
--- NOTE | 2016-11-04 12:15 | Discharge Summary ---
Providers - Providers Date of Admission: 11/02/16 11:18 Date of discharge: 11/04/16 Attending physician: VIADL WALL 11/02/16 12:39 Consult to Physician [CONS] Urgent Consulting Provider: DILIP BAEZA Reason For Exam: icu admission Place consult to:: mamadou Notified:: no 11/03/16 12:43 Consult to Physician [CONS] Routine Consulting Provider: MARY JANE DIAZ Reason For Exam: epigastric pain with c/o nausea Place consult to:: simulation educator GI Notified:: office Phone number called:: [phone] Was contact made?: Yes If yes, spoke with:: Verena Time called:: 13:50 Comment:: Ling Notified Primary care physician: ACID DUMPER Hospitalization Condition: Stable Hospital course: Patient 56-year-old male with a history of myocardial infarction and coronary disease CABG approximately 2 years ago, hyperlipidemia, anemia, end-stage renal disease presented after missing hemodialysis for 1 week. Patient also c/o chest pain and epigastric pain on admission. His troponin noted to be elevated on admission. Nephrology was consulted and he was dialyzed per nephrology recommendation. Cardiology consulted for elevated troponin and they recommended no further intervention and to continue medical management. GI was consulted for his epigastric pain and apparently patient was recently at [facility] where he was supposed to have colonoscopy and EGD but he left AMA from there. GI evaluated him and recommended outpatient follow-up for EGD and colonoscopy. Patient need to be off Plavix for 5 days before the procedure. Cardiology also cleared him for the procedure. Patient was instructed to follow -up patient with GI to complete the workup. Discharge Diagnosis: Atypical chest pain * no acute EKG changes * s/p stress MPI 07/2016: no significant ischemia * h/o LHC 02/2016: patent bypass grafts with distal disease in [place] rca and circumflex territory-->medical mgt. * Echo 07/2016: EF 40-45%, RVSP 60-65mmHg * continue imdur 30mg daily, medical Mx per cardiology Epigastric pain * tolerated diet with out any single episode of N/V * He even wanted special sandwich for him, often requested extra meal per RN report * GI recommended out pt EGD/colonoscopy Elevated troponin * likely due to ESRD, stable Accelerated hypertension * continue coreg, lisinopril, imdur, hydralazine * non compliant with med, counselled to be compliant CAD /p CABG and PCI * continue ASA, Plavix, Lipitor * can hold plavix for 5 days before getting EGD/colonoscopy out pt ESRD on HD, nephrology follow up out pt as needed Anemia of CD, stable h/o Depression, out pt psych follow up, not on any meds. Did not exhibit ant alarming sign while in the hospital Tobacco abuse, counselled Disposition: DISCHARGED TO HOME OR SELFCARE Time spent for discharge: 32 minutes Core Measure Documentation - Palliative Care Palliative Care/ Comfort Measures: Not Applicable - Core Measures Any of the following diagnoses?: history only Exam - Physical Exam Narrative exam: GENERAL: well-developed and well-nourished AAM lying on bed appeared to be in no discomfort. HEENT: Normocephalic. Atraumatic. No conjunctival congestion or icterus. Patient has moist mucous membranes. NECK: Supple. Trachea midline. CHEST/LUNGS: Clear to auscultated bilaterally, breathing nonlabored. No wheezes crackles or rhonchi. HEART/CARDIOVASCULAR: Regular in rate and rhythm. S1 and S2 positive. ABDOMEN: Abdomen is soft, nontender. Patient has normal bowel sounds. SKIN: There is no rash. Warm and dry. NEURO: No focal motor deficit. Follows command. MUSCULOSKELETAL: No joint effusion or tenderness. EXTRIMITY: No edema, no cyanosis or clubbing. PSYCH: Appears to be very rude. - Constitutional Vitals: Temp Pulse Resp BP Pulse Ox 98.4 F 85 16 170/100 99 11/04/16 05:00 11/04/16 09:47 11/04/16 08:01 11/04/16 09:46 11/04/16 07:46 Plan Activity: advance as tolerated Weight Bearing Status: Weight Bear as Tolerated Diet: renal Follow up with: PRIMARY CARE, [Primary Care Provider] - 3-5 Days Prescriptions: AtorvaSTATin [Lipitor] 40 mg PO QHS #30 tablet Aspirin [Aspirin BABY CHEW TAB] 81 mg PO QDAY #30 tab.chew Carvedilol [Coreg] 25 mg PO BID #60 tablet Clopidogrel [Plavix] 75 mg PO QDAY #30 tablet Famotidine [Pepcid] 20 mg PO QDAY #30 tablet hydrALAZINE [Apresoline TAB] 50 mg PO Q8HR #90 tablet ISOSORBIDE MONOnitrate [Imdur ER] 30 mg PO QDAY #30 tablet Lisinopril [Zestril TAB] 20 mg PO QDAY #30 tablet Pending Studies Follow-up with GI for outpatient EGD and colonoscopy.
== END 2016-11-04 13:45 | disposition home or self-care (01) | DRG 291 ==
LOC: ED 05:31 → CC1 11:18 → 3A 19:45
PROVIDERS: ADMIT Internal Medicine; ATTEND Internal Medicine
PROC: 5A1D60Z (ICD-10-PCS; 2016-11-02)
PROC: 4A033R1 Measurement of Arterial Saturation, Peripheral, Percutaneous Approach (ICD-10-PCS; principal; 2016-11-03)
DX: I13.2 Hypertensive heart and chronic kidney disease with heart failure and with stage 5 chronic kidney disease, or end stage renal disease (principal); N18.6 End stage renal disease; J96.00 Acute respiratory failure, unspecified whether with hypoxia or hypercapnia; I16.1 Hypertensive emergency; I25.2 Old myocardial infarction; F17.210 Nicotine dependence, cigarettes, uncomplicated; I25.10 Atherosclerotic heart disease of native coronary artery without angina pectoris; E78.5 Hyperlipidemia, unspecified; R07.89 Other chest pain; D64.9 Anemia, unspecified; F32.9 Major depressive disorder, single episode, unspecified; D63.1 Anemia in chronic kidney disease; Z99.2 Dependence on renal dialysis; I50.9 Heart failure, unspecified; Z79.899 Other long term (current) drug therapy; Z91.15 Patient's noncompliance with renal dialysis; Z95.1 Presence of aortocoronary bypass graft; Z95.5 Presence of coronary angioplasty implant and graft; Z82.49 Family history of ischemic heart disease and other diseases of the circulatory system
CPT/HCPCS: 36415; 36600; 71010; 74176; 80048; 80053; 80061; 80074; 82803; 83690; 83880; 84100; 84484; 85007; 85025; 85610; 93005; 93010; 94640; 94760; 96374; 96375; C9113; J0360; J1170; J2270; J7030

== ENCOUNTER 2016-11-16 23:07 | Emergency (ER) | payer MEDICARE ==
[2016-11-16] MEDS ORDERED: DUONEB 0.5 MG-3 MG/3 ML SOLN IH ONE (23:44)
[2016-11-17 00:44] LABS: Hematocrit 29.5 % (35.5-45.6); Hemoglobin 9.9 gm/dl (11.8-15.2); Mean Corpuscular HGB Conc 34 % (32-34); Mean Corpuscular Hemoglobin 33 pg (28-32); Mean Corpuscular Volume 98 fl (84-94); Platelet Count 122 K/mm3 (140-440); Red Blood Count 3.02 M/mm3 (3.65-5.03); Red Cell Distribution Width 14.7 % (13.2-15.2); White Blood Count 3.7 K/mm3 (4.5-11.0)
[2016-11-17] MEDS ORDERED: TYLENOL PO ONE (00:51)
[2016-11-17 01:49] LABS: BUN/Creatinine Ratio 3.33; Calcium 9.9 mg/dL (8.4-10.2); Chloride 93.8 mmol/L (98-107); Potassium 4.4 mmol/L (3.6-5.0)
[2016-11-17 03:04] LABS: Basophils % (Manual) 0 % (0.0-1.8); Blastocytes % (Manual) 0 %; Eosinophils % (Manual) 0 % (0.0-4.3)
[2016-11-17 03:05] LABS: Anisocytosis 1+; Microcytosis Few; Platelet Estimate Consistent w Auto; Stomatocytes Rare
[2016-11-17 03:06] LABS: Diff Status Complete
[2016-11-17] MEDS ORDERED: ATROVENT IH ONE (03:19)
[2016-11-17] MEDS ORDERED: PROVENTIL IH ONE (03:19)
--- NOTE | 2016-11-17 03:22 | Emergency Department Report ---
ED General Adult HPI - General Chief complaint: Dyspnea/Respdistress Stated complaint: ALVIN Time Seen by Provider: 11/17/16 03:11 Source: patient, RN notes reviewed, old records reviewed Mode of arrival: Ambulatory Limitations: No Limitations - History of Present Illness Initial comments: This is a 56-year-old male. I have evaluated him in the past. In short, patient has a past medical history of acute coronary syndrome, CABG, high cholesterol, anemia, end-stage renal disease, sporadically compliant with dialysis. Patient reports being dialyzed yesterday, reports that it was abnormal length in duration. He is sent to the ER by his dewaxer for possible pneumonia. Patient complains of bodyaches, cough, shortness of breath, malaise, myalgias for the past 48-72 hours. Positive subjective fever. Positive cough, positive mucus production. Symptoms have been constant for the past 2 days. They worsen with physical exertion, decreased with rest. -: Gradual Location: left, right, upper extremity, lower extremity Severity scale (0 -10): 7 Quality: aching Consistency: intermittent Improves with: rest Worsens with: movement Associated Symptoms: cough - Related Data Previous Rx's Medication Instructions Recorded Last Taken Type Aspirin [Aspirin BABY CHEW TAB] 81 mg PO QDAY #30 tab.chew 11/04/16 Unknown Rx AtorvaSTATin [Lipitor] 40 mg PO QHS #30 tablet 11/04/16 Unknown Rx Carvedilol [Coreg] 25 mg PO BID #60 tablet 11/04/16 Unknown Rx Clopidogrel [Plavix] 75 mg PO QDAY #30 tablet 11/04/16 Unknown Rx Famotidine [Pepcid] 20 mg PO QDAY #30 tablet 11/04/16 Unknown Rx ISOSORBIDE MONOnitrate [Imdur ER] 30 mg PO QDAY #30 tablet 11/04/16 Unknown Rx Lisinopril [Zestril TAB] 20 mg PO QDAY #30 tablet 11/04/16 Unknown Rx hydrALAZINE [Apresoline TAB] 50 mg PO Q8HR #90 tablet 11/04/16 Unknown Rx Albuterol Sulfate [Proair 90 mcg IH Q4HR PRN #2 aer.pow.ba 11/17/16 Unknown Rx Respiclick] Benzonatate [Tessalon Perles] 100 mg PO Q8HR PRN #30 capsule 11/17/16 Unknown Rx Fluticasone [Flonase] 1 spray NS QDAY #1 bottle 11/17/16 Unknown Rx Allergies Allergy/AdvReac Type Severity Reaction Status Date / Time No Known Allergies Allergy Verified 11/16/16 23:40 ED Review of Systems ROS: Stated complaint: ALVIN Other details as noted in HPI Constitutional: malaise, weakness Eyes: denies: vision change ENT: denies: epistaxis Respiratory: cough, wheezing Cardiovascular: as per HPI, dyspnea on exertion Gastrointestinal: denies: abdominal pain Genitourinary: denies: dysuria Musculoskeletal: arthralgia, myalgia Skin: denies: lesions Neurological: denies: weakness Psychiatric: denies: anxiety ED Past Medical Hx - Past Medical History Previous Medical History?: Yes Hx Hypertension: Yes (1990) Hx Heart Attack/AMI: Yes Hx Congestive Heart Failure: Yes Hx Diabetes: No Hx Renal Disease: Yes (HD M,W,F) Hx Asthma: No Hx COPD: No Additional medical history: PA with stent placenment - Surgical History Past Surgical History?: Yes Hx Coronary Stent: Yes (x1 2012) Additional Surgical History: Stent placement, LUE AV graft - Social History Smoking Status: Current Every Day Smoker - Medications Home Medications: Home Medications Medication Instructions Recorded Confirmed Last Taken Type Aspirin [Aspirin BABY CHEW TAB] 81 mg PO QDAY #30 tab.chew 11/04/16 Unknown Rx AtorvaSTATin [Lipitor] 40 mg PO QHS #30 tablet 11/04/16 Unknown Rx Carvedilol [Coreg] 25 mg PO BID #60 tablet 11/04/16 Unknown Rx Clopidogrel [Plavix] 75 mg PO QDAY #30 tablet 11/04/16 Unknown Rx Famotidine [Pepcid] 20 mg PO QDAY #30 tablet 11/04/16 Unknown Rx ISOSORBIDE MONOnitrate [Imdur ER] 30 mg PO QDAY #30 tablet 11/04/16 Unknown Rx Lisinopril [Zestril TAB] 20 mg PO QDAY #30 tablet 11/04/16 Unknown Rx hydrALAZINE [Apresoline TAB] 50 mg PO Q8HR #90 tablet 11/04/16 Unknown Rx Albuterol Sulfate [Proair 90 mcg IH Q4HR PRN #2 aer.pow.ba 11/17/16 Unknown Rx Respiclick] Benzonatate [Tessalon Perles] 100 mg PO Q8HR PRN #30 capsule 11/17/16 Unknown Rx Fluticasone [Flonase] 1 spray NS QDAY #1 bottle 11/17/16 Unknown Rx ED Physical Exam - General Limitations: No Limitations General appearance: alert, in no apparent distress - Head Head exam: Present: atraumatic, normocephalic - Eye Eye exam: Present: normal appearance, EOMI. Absent: nystagmus - ENT ENT exam: Present: normal exam, normal orophraynx, mucous membranes moist, normal external ear exam - Neck Neck exam: Present: normal inspection, full ROM. Absent: tenderness, meningismus - Respiratory Respiratory exam: Present: respiratory distress, wheezes, rhonchi - Cardiovascular Cardiovascular Exam: Present: regular rate, normal rhythm, normal heart sounds. Absent: bradycardia, tachycardia, irregular rhythm, systolic murmur, diastolic murmur, rubs, gallop - GI/Abdominal GI/Abdominal exam: Present: soft, normal bowel sounds. Absent: distended, tenderness, guarding, rebound, rigid, pulsatile mass - Rectal Rectal exam: Present: deferred - Extremities Exam Extremities exam: Present: normal inspection, full ROM, normal capillary refill , pedal edema, other (upper extremity AV fistula, appropriate thrill.). Absent : tenderness, calf tenderness - Back Exam Back exam: Present: normal inspection, full ROM. Absent: tenderness, CVA tenderness (R), CVA tenderness (L), muscle spasm, paraspinal tenderness, vertebral tenderness - Neurological Exam Neurological exam: Present: alert, oriented X3, normal gait, other (Extraocular movements intact. Tongue midline. No facial droop. Facial sensation intact to light touch in the V1, V2, V3 distribution bilaterally. 5 and 5 strength in 4 extremities.. Sensation is intact to light touch in 4 extremities.). Absent : motor sensory deficit - Psychiatric Psychiatric exam: Present: normal affect, normal mood - Skin Skin exam: Present: warm, dry, intact, normal color. Absent: rash ED Course Vital Signs 11/16/16 11/17/16 11/17/16 23:40 01:00 02:44 Temperature 98.1 F 98.8 F Pulse Rate 104 H 98 H Respiratory 18 18 18 Rate Blood Pressure 186/126 Blood Pressure 196/121 [Right] O2 Sat by Pulse 99 98 Oximetry - Reevaluation(s) Reevaluation #1: 11/17/16 04:15 Differential diagnosis: Bronchitis, upper respiratory tract infection, pneumonia , influenza, influenza-like illness Assessment and plan: 56-year-old male with cough, body aches, subjective fevers , reports that he got an influenza shot, has coarse rhonchorous breath sounds, chest x-ray with nonspecific findings. CT scan of the chest demonstrated no evidence of pneumonia. Upon initial evaluation, patient sleeping comfortably, no distress. When the patient wakes up, he is saturating at 97%, and makes multiple requests to eat and drink. Patient has a past medical history of poorly controlled hypertension , and his blood pressure today is not any new, worsening or different. He does not appear to be grossly volume overloaded, and his clinical history seems to be consistent with bronchitis. [place] improved after nebulizer therapy. He is tolerating liquid feeds. I see no reason to admit the patient to the hospital at this time. He is instructed to continue his outpatient medications. ED Medical Decision Making - Lab Data Result diagrams: 11/17/16 00:15 11/17/16 00:15 Vital Signs 11/16/16 11/17/16 11/17/16 23:40 01:00 02:44 Temperature 98.1 F 98.8 F Pulse Rate 104 H 98 H Respiratory 18 18 18 Rate Blood Pressure 186/126 Blood Pressure 196/121 [Right] O2 Sat by Pulse 99 98 Oximetry Lab Results 11/17/16 11/17/16 11/17/16 Range/Units 00:15 00:15 03:36 WBC 3.7 L (4.5-11.0) K/mm3 RBC 3.02 L (3.65-5.03) M/mm3 Hgb 9.9 L (11.8-15.2) gm/dl Hct 29.5 L (35.5-45.6) % MCV 98 H (84-94) fl MCH 33 H (28-32) pg MCHC 34 (32-34) % RDW 14.7 (13.2-15.2) % Plt Count 122 L (140-440) K/mm3 [place]man % (Auto) Ultrasonic Solderer Add Manual Diff Complete Total Counted 100 Seg Neuts % (Manual) 75.0 H (40.0-70.0) % Band Neutrophils % 0 % Lymphocytes % (Manual) 11.0 L (13.4-35.0) % Reactive Lymphs % (Man) 0 % Monocytes % (Manual) 14.0 H (0.0-7.3) % Eosinophils % (Manual) 0 (0.0-4.3) % Basophils % (Manual) 0 (0.0-1.8) % Metamyelocytes % 0 % Myelocytes % 0 % Promyelocytes % 0 % Blast Cells % 0 % Nucleated RBC % Not Reportable Seg Neutrophils # Man 2.8 (1.8-7.7) K/mm3 Band Neutrophils # 0.0 K/mm3 Lymphocytes # (Manual) 0.4 L (1.2-5.4) K/mm3 Abs React Lymphs (Man) 0.0 K/mm3 Monocytes # (Manual) 0.5 (0.0-0.8) K/mm3 Eosinophils # (Manual) 0.0 (0.0-0.4) K/mm3 Basophils # (Manual) 0.0 (0.0-0.1) K/mm3 Metamyelocytes # 0.0 K/mm3 Myelocytes # 0.0 K/mm3 Promyelocytes # 0.0 K/mm3 Blast Cells # 0.0 K/mm3 WBC Morphology Not Reportable Hypersegmented Neuts Not Reportable Hyposegmented Neuts Not Reportable Hypogranular Neuts Not Reportable Smudge Cells Not Reportable Toxic Granulation Not Reportable Toxic Vacuolation Not Reportable Dohle Bodies Not Reportable Pelger-Huet Anomaly Not Reportable Ashok Rods Not Reportable Platelet Estimate Consistent w auto Clumped Platelets Not Reportable Plt Clumps, EDTA Not Reportable Large Platelets Not Reportable Giant Platelets Not Reportable Platelet Satelliting Not Reportable Plt Morphology Comment Not Reportable RBC Morphology Not Reportable Dimorphic RBCs Not Reportable Polychromasia Not Reportable Hypochromasia Not Reportable Poikilocytosis Not Reportable Anisocytosis 1+ Microcytosis Few Macrocytosis Not Reportable Spherocytes Not Reportable Pappenheimer Bodies Not Reportable Sickle Cells Not Reportable Target Cells Not Reportable Tear Drop Cells Not Reportable Ovalocytes Not Reportable Stomatocytes Rare Helmet Cells Not Reportable [place] Bodies Not Reportable [place] Rings Not Reportable Opal Cells Not Reportable Bite Cells Not Reportable Crenated Cell Not Reportable Elliptocytes Not Reportable Acanthocytes (Spur) Not Reportable Rouleaux Not Reportable Hemoglobin C Crystals Not Reportable Schistocytes Not Reportable Malaria parasites Not Reportable Mello Bodies Not Reportable Hem Pathologist Commnt No Sodium 140 (137-145) mmol/L Potassium 4.4 (3.6-5.0) mmol/L Chloride 93.8 L (98-107) mmol/L Carbon Dioxide 28 (22-30) mmol/L Anion Gap 23 mmol/L BUN 21 H (9-20) mg/dL Creatinine 6.3 H (0.8-1.5) mg/dL Estimated GFR 11 ml/min BUN/Creatinine Ratio 3.33 % Glucose 100 (75-100) mg/dL Calcium 9.9 (8.4-10.2) mg/dL Total Creatine Kinase 63 (55-170) units/L Critical care attestation.: If time is entered above; I have spent that time in minutes in the direct care of this critically ill patient, excluding procedure time. ED Disposition Clinical Impression: Influenza-like illness Disposition: DISCHARGED TO HOME OR SELFCARE Is pt being admited?: No Does the pt Need Aspirin: No Condition: Stable Instructions: Acute Bronchitis (ED) Additional Instructions: Rest and avoid heavy lifting. Avoid strenuous physical activity. take the breathing medications as directed. CT scan of the chest demonstrated no evidence of pneumonia. Symptoms most likely coming from cold/bronchitis/viral syndrome/influenza-like illness. Take Tylenol every 4-6 hours as needed for fever and/or pain. Take the breathing medication and cough medication as directed. Follow up with the primary care doctor within the next week. Return to the ER right away with new, worsening or different symptoms. Referrals: PRIMARY MD JAMIA [Primary Care Provider] - 3-5 Days HELEN CORNELL MD [Staff Physician] - 3-5 Days
--- NOTE | 2016-11-17 03:33 | XRay Report ---
FINAL REPORT PROCEDURE: XR CHEST ROUTINE 2V TECHNIQUE: Chest radiograph anteroposterior view. CPT 14636 HISTORY: shortness of breath COMPARISON: No prior studies are available for comparison. FINDINGS: Heart: The heart size is slightly enlarged. Mediastinum/Vessels: Multiple sternal wires are present. Lungs/Pleural space: Normal. Bony thorax: No acute osseous abnormality. Life support devices: None. IMPRESSION: There is no evidence of an acute infiltrate or effusion. Mild cardiomegaly..
--- NOTE | 2016-11-17 04:06 | Cat Scan Report ---
FINAL REPORT PROCEDURE: CT CHEST WO CON TECHNIQUE: Computerized axial tomography of the chest was performed without contrast material. This study is performed without intravenous contrast and the sensitivity for pathology, including neoplasms, adenopathy, abscess, pulmonary embolism and aortic dissection, is reduced. HISTORY: cough COMPARISON: No prior studies are available for comparison. TECHNICAL QUALITY: Satisfactory. FINDINGS: Heart and pericardium: Heart size is pronounced. No pericardial effusion.. Thoracic aorta: Normal. Pulmonary vasculature: Normal. Lymph nodes: Multiple lymph nodes identified in the mediastinum measure up to 2 centimeters.. Lungs: Mild vascular congestion. No acute consolidation or effusion. The central airway is patent. Pleural space: No effusion, thickening, or pneumothorax. Musculoskeletal structures: Multiple sternal wires are present.. Upper abdominal structures: No significant abnormality. IMPRESSION: Mild vascular congestion. No consolidation or effusion. Moderate cardiomegaly. Prior midline sternotomy. Multiple lymph nodes in the mediastinum measure up to 2 centimeters..
[2016-11-17] MEDS ORDERED: CATAPRES PO ONE (04:17)
[2016-11-17 05:10] VITALS: BP 191/122
== END 2016-11-17 05:41 | disposition home or self-care (01) ==
LOC: ED 23:07
DX: J11.1 Influenza due to unidentified influenza virus with other respiratory manifestations (principal); I10 Essential (primary) hypertension; I25.2 Old myocardial infarction; I50.9 Heart failure, unspecified; E78.00 Pure hypercholesterolemia, unspecified; D64.9 Anemia, unspecified; I12.0 Hypertensive chronic kidney disease with stage 5 chronic kidney disease or end stage renal disease; N18.6 End stage renal disease; F17.200 Nicotine dependence, unspecified, uncomplicated; Z99.2 Dependence on renal dialysis; Z79.82 Long term (current) use of aspirin; Z95.1 Presence of aortocoronary bypass graft
CPT/HCPCS: 36415; 71020; 71250; 80048; 82550; 85007; 85025; 87400; 93005; 93010; 94640

== ENCOUNTER 2016-11-17 10:14 | Emergency (ER) | payer MEDICARE ==
[2016-11-17 10:48] VITALS: BP 181/112
[2016-11-17 11:19] LABS: Basophils % (Auto) 0.8 % (0.0-1.8); Eosinophils % (Auto) 4.2 % (0.0-4.3); Hematocrit 31.6 % (35.5-45.6); Hemoglobin 10.3 gm/dl (11.8-15.2); Mean Corpuscular HGB Conc 33 % (32-34); Mean Corpuscular Hemoglobin 32 pg (28-32); Mean Corpuscular Volume 98 fl (84-94); Platelet Count 129 K/mm3 (140-440); Red Blood Count 3.21 M/mm3 (3.65-5.03); Red Cell Distribution Width 14.8 % (13.2-15.2); White Blood Count 3.4 K/mm3 (4.5-11.0)
[2016-11-17 11:37] LABS: Albumin 4.1 g/dL (3.9-5); Albumin/Globulin Ratio 1.2 %; BUN/Creatinine Ratio 3.29; Bilirubin,Total 0.7 mg/dL (0.1-1.2); Chloride 93.4 mmol/L (98-107); Potassium 3.7 mmol/L (3.6-5.0); Total Protein 7.4 g/dL (6.3-8.2)
== END 2016-11-17 20:16 | disposition left against medical advice (07) ==
LOC: ED 10:14
DX: R10.10 Upper abdominal pain, unspecified (principal); R50.9 Fever, unspecified; I50.9 Heart failure, unspecified; I10 Essential (primary) hypertension; I25.2 Old myocardial infarction; F17.200 Nicotine dependence, unspecified, uncomplicated; Z53.21 Procedure and treatment not carried out due to patient leaving prior to being seen by health care provider
CPT/HCPCS: 36415; 80053; 83690; 85025; 93005; 93010

== ENCOUNTER 2016-11-18 17:00 | Emergency (ER) | payer MEDICARE | END 2016-11-18 17:35 | disposition left against medical advice (07) | LOC: ED 17:00 | DX: R10.9 Unspecified abdominal pain (principal); Z53.21 Procedure and treatment not carried out due to patient leaving prior to being seen by health care provider ==